=== PATIENT | female | born 1950 | race Caucasian/White ===

== ENCOUNTER 2016-11-26 07:46 | Inpatient (IN) | payer MEDICAID, MEDICARE ==
[~2016-11-26] VITALS: Ht 160 cm; Wt 66.6 kg
[~2016-11-26 07:46] MED LIST: BENZ1 PO; LOXA50CA PO; PROP1TAB66 PO
[2016-11-26 07:57] VITALS: BP 132/63; PULSE 84; RESP 18; TEMP 98.2
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
[2016-11-26] MEDS ORDERED: LORazepam 2 MG/ML VIAL IM ONE (08:00)
[2016-11-26] MEDS ORDERED: diphenhydrAMINE HCL 50 MG/ML VIAL IM ONE (08:00)
[2016-11-26 08:19] LABS: AUTOMATED NEUTROPHIL # 2.8 TH/MM3 (1.8-7.7); BASOPHIL # 0.1 TH/MM3 (0-0.2); BASOPHIL % 1.1 % (0.0-2.0); EOSINOPHIL # 0.2 TH/MM3 (0-0.4); EOSINOPHIL % 2.8 % (0.0-4.0); HEMATOCRIT 40.8 % (35.0-46.0); HEMO FLAGS DIFF FINAL; LYMPH % 42.1 % (9.0-44.0); LYMPHOCYTE # 2.5 TH/MM3 (1.0-4.8); MEAN CELL VOLUME 89.9 FL (80.0-100.0); MEAN CORPUSCULAR HEMOGLOBIN 30.1 PG (27.0-34.0); MEAN CORPUSCULAR HGB CONC 33.5 % (32.0-36.0); PLATELET COUNT 290 TH/MM3 (150-450); RED BLOOD COUNT 4.53 MIL/MM3 (4.00-5.30); RED CELL DISTRIBUTION WIDTH 14.7 % (11.6-17.2); WHITE BLOOD COUNT 5.9 TH/MM3 (4.0-11.0)
[2016-11-26 08:42] LABS: ALT (GPT) 18 U/L (10-53); ANION GAP 11 MEQ/L (5-15); AST (GOT) 22 U/L (15-37); BICARBONATE 25.9 MEQ/L (21.0-32.0); BLOOD UREA NITROGEN 8 MG/DL (7-18); CHLORIDE 106 MEQ/L (98-107); GLOMERULAR FILTRATION RATE 70 ML/MIN (>89); POTASSIUM 3.4 MEQ/L (3.5-5.1); SODIUM (NA) 143 MEQ/L (136-145)
[2016-11-26 08:44] LABS: ALKALINE PHOSPHATASE 97 U/L (45-117); TOTAL BILIRUBIN ADULT 0.3 MG/DL (0.2-1.0)
[2016-11-26 09:55] LABS: BLOOD, URINE NEG (NEG); COMMENT (UR) CULT NOT INDICATED; CULTURE IF INDICATED CULT NOT INDICATED; GLUCOSE,URINE NEG (NEG); KETONE, URINE NEG (NEG); NITRITE,URINE NEG (NEG); PH, URINE 7.5 (5.0-8.5); SQUAMOUS EPITHELIAL CELL URINE <1 /hpf (0-5); URINE COLOR LIGHT-YELLOW (YELLW/STRAW)
[2016-11-26 09:58] LABS: AMPHETAMINE, URINE NEG (NEG); BARBITURATES, URINE NEG (NEG); COCAINE, URINE NEG (NEG)
[2016-11-26 14:34] VITALS: BP 128/71; PULSE 81; RESP 16; O2SAT 98
[2016-11-26 18:52] VITALS: BP 197/82; PULSE 81; TEMP 97.6; O2SAT 96
[2016-11-26 22:04] VITALS: BP 147/72; PULSE 61; RESP 16; O2SAT 96
[2016-11-26] MEDS ORDERED: MAGNESIUM HYDROXIDE SUSP 30 ML CUP PO PRN (22:15)
[2016-11-26] MEDS ORDERED: diphenhydrAMINE HCL 50 MG CAP PO PRN (22:15)
[2016-11-26] MEDS ORDERED: LORazepam 2 MG/ML VIAL - age > 65 yrs IM PRN (22:15)
[2016-11-26] MEDS ORDERED: diphenhydrAMINE HCL 50 MG/ML VIAL - HS PRN IM (22:15)
[2016-11-26] MEDS ORDERED: diphenhydrAMINE HCL 50 MG CAP - HS PRN PO (22:15)
[2016-11-26] MEDS ORDERED: diphenhydrAMINE HCL 50 MG/ML VIAL IM PRN (22:15)
[2016-11-26] MEDS: ACETAMINOPHEN 325 MG TAB PO PRN (22:20)
[2016-11-26] MEDS: LORazepam 0.5 MG TAB age > 65 yrs PO PRN (22:20)
[2016-11-26] MEDS: QUEtiapine FUMARATE 25 MG TAB PO SCH (22:27)
[2016-11-26 23:50] VITALS: BP 153/72; PULSE 58; RESP 16; TEMP 97; O2SAT 99
[2016-11-27 06:03] VITALS: BP 153/72; PULSE 58; RESP 16; TEMP 97; O2SAT 99
[2016-11-27] MEDS: QUEtiapine FUMARATE 25 MG TAB PO SCH (08:27)
[2016-11-27] MEDS ORDERED: ALUMINUM/MAGNESIUM/SIMETH 30 ML CUP PO PRN (15:15)
[2016-11-27] MEDS ORDERED: ACETAMINOPHEN 325 MG TAB PO PRN (15:15)
[2016-11-27] MEDS ORDERED: MAGNESIUM HYDROXIDE SUSP 30 ML CUP PO PRN (15:15)
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
[2016-11-27 18:54] VITALS: BP 134/75; PULSE 67; RESP 18; TEMP 98.1; O2SAT 99
[2016-11-27] MEDS: OLANZapine ODT 5 MG TAB PO SCH (20:23)
[2016-11-27] MEDS: ACETAMINOPHEN 325 MG TAB PO PRN (20:24)
[2016-11-27] MEDS ORDERED: risperiDONE ODT 1 MG TAB PO SCH (21:00)
[2016-11-28 05:14] VITALS: BP 160/73; PULSE 58; RESP 16; TEMP 97.2; O2SAT 100
[2016-11-28] MEDS: OLANZapine ODT 5 MG TAB PO SCH (08:01)
[2016-11-28] MEDS: ACETAMINOPHEN 325 MG TAB PO PRN (08:01)
[2016-11-28] MEDS: NICOTINE 21 MG/24 HR PATCH T-DERMAL SCH (08:01)
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
[2016-11-28 18:32] VITALS: BP 136/59; PULSE 57; RESP 16; TEMP 97.4; O2SAT 97
[2016-11-28] MEDS: REMOVE OLD NICODERM (NICOTINE) PATCH T-DERMAL SCH (21:00)
[2016-11-28] MEDS: OLANZapine ODT 10 MG TAB PO SCH (21:22)
[2016-11-28] MEDS: LORazepam 0.5 MG TAB age > 65 yrs PO PRN (21:22)
[2016-11-29 06:03] VITALS: BP 139/64; PULSE 71; RESP 16; TEMP 97.1; O2SAT 97
[2016-11-29] MEDS: OLANZapine ODT 5 MG TAB PO SCH (08:46)
[2016-11-29] MEDS: ACETAMINOPHEN 325 MG TAB PO PRN (08:47)
[2016-11-29] MEDS: REMOVE OLD NICODERM (NICOTINE) PATCH T-DERMAL SCH (08:48)
[2016-11-29] MEDS: NICOTINE 21 MG/24 HR PATCH T-DERMAL SCH (08:48)
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
[2016-11-29 17:14] VITALS: BP 130/78; PULSE 95; RESP 18; TEMP 97.8; O2SAT 97
[2016-11-29] MEDS: OLANZapine ODT 10 MG TAB PO SCH (21:01)
[2016-11-29] MEDS: LORazepam 0.5 MG TAB age > 65 yrs PO PRN (21:18)
[2016-11-30 05:22] VITALS: BP 132/69; PULSE 64; RESP 16; TEMP 97.1; O2SAT 97
[2016-11-30] MEDS: OLANZapine ODT 5 MG TAB PO SCH (08:52)
[2016-11-30] MEDS: ACETAMINOPHEN 325 MG TAB PO PRN (09:20)
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
[2016-11-30 15:15] VITALS: BP 113/54; PULSE 71; RESP 18; TEMP 98.4; O2SAT 98
[2016-11-30] MEDS: LORazepam 0.5 MG TAB age > 65 yrs PO PRN (20:51)
[2016-11-30] MEDS: OLANZapine ODT 10 MG TAB PO SCH (20:51)
[2016-12-01 06:00] VITALS: BP 132/61; PULSE 73; RESP 16; TEMP 97.4; O2SAT 97
[2016-12-01] MEDS: ACETAMINOPHEN 325 MG TAB PO PRN (09:39)
[2016-12-01] MEDS: OLANZapine ODT 5 MG TAB PO SCH (09:39)
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
[2016-12-01 15:30] VITALS: BP 115/59; PULSE 72; RESP 18; TEMP 97.9; O2SAT 96
[2016-12-01] MEDS: OLANZapine ODT 10 MG TAB PO SCH (20:35)
[2016-12-02] MEDS: ALUMINUM/MAGNESIUM/SIMETH 30 ML CUP PO PRN (02:41)
[2016-12-02] MEDS: ACETAMINOPHEN 325 MG TAB PO PRN (04:04)
[2016-12-02 06:09] VITALS: BP 132/61; PULSE 87; RESP 17; TEMP 98.1; O2SAT 97
[2016-12-02] MEDS: LORazepam 0.5 MG TAB age > 65 yrs PO PRN (08:49)
[2016-12-02] MEDS: OLANZapine ODT 5 MG TAB PO SCH (08:49)
--- NOTE | 2016-12-02 14:11 | HHI.PYPN ---
Subjective Remarks Pt seen and discussed with staff. She has been cooperative with care and has not been agitated today. She remains paranoid and guarded but is improving. No medication side effects. No SI/HI Objective Alert: Yes [place]: Person, Place Mood: Calm Affect: Restricted Memory Intact: Comment (poor) Hallucinations: Other (vaguely denies) Delusions: Yes Delusion Type: Paranoid Suicidal: Ideation (denies) Homicidal: Ideation (denies) Insight/Judgment limited Remarks disheveled Vitals/IOs Vital Signs Date Time Temp Pulse Resp B/P Pulse Ox O2 Delivery O2 Flow Rate FiO2 12/02/16 06:09 98.1 87 17 132/61 97 Assessment & Plan Problem List: (1) Schizoaffective disorder, bipolar type ICD Code: F25.0 Assessment & Plan Continue current tx plan. Estimated LOS: days Justification for Cont. Inpt. risks of decompensation Request HC Surrog/Guard Advoc?: No Savannah Gutierrez MD December 02, 2016 14:11
[2016-12-02] MEDS ORDERED: hydrOXYzine PAMOATE 25 MG CAP PO PRN (15:45)
[2016-12-02 17:14] VITALS: BP 125/60; PULSE 72; RESP 18; TEMP 98.7; O2SAT 98
[2016-12-02] MEDS: OLANZapine ODT 10 MG TAB PO SCH (21:36)
[2016-12-03] MEDS: ALUMINUM/MAGNESIUM/SIMETH 30 ML CUP PO PRN ×2 (00:17→20:37)
[2016-12-03] MEDS: ACETAMINOPHEN 325 MG TAB PO PRN (04:28)
[2016-12-03 06:34] VITALS: BP 133/82; PULSE 69; RESP 19; TEMP 97.4; O2SAT 99
[2016-12-03 06:36] VITALS: BP 129/60; PULSE 100; RESP 18; TEMP 98.4; O2SAT 99
[2016-12-03] MEDS: OLANZapine ODT 5 MG TAB PO SCH (08:43)
--- NOTE | 2016-12-03 11:08 | HHI.PYPN ---
Subjective Remarks Pt seen and discussed with staff. Pt is paranoid and easily agitated. She demands discharge and told RN she [facility] and became agitated when RN suggested that was not a safe, viable plan. She accuses MD of not being a real physician and insists that physician JOHNATHAN nunes is a fake. She then accuses MD of attempting to make trouble for Dr. Navarro and makes vague threats. "You don't know what you getting into. You don't want to get involved in this." Objective Alert: Yes [place]: Person, Place Mood: Angry Affect: Other (congruent) Memory Intact: Comment (poor) Hallucinations: Other (vaguely denies) Delusions: Yes Delusion Type: Paranoid Suicidal: Ideation (denies) Homicidal: Ideation (denies) Insight/Judgment poor Vitals/IOs Vital Signs Date Time Temp Pulse Resp B/P Pulse Ox O2 Delivery O2 Flow Rate FiO2 12/03/16 06:36 98.4 100 18 129/60 99 Assessment & Plan Problem List: (1) Schizoaffective disorder, bipolar type ICD Code: F25.0 Assessment & Plan Continue current tx plan and hospitalization. As pt is psychotic, easily agitated and unable to care for self, she is at risk for neglect if discharged. She meets BA criteria. Involuntary hospitalization petition started. Estimated LOS: days Justification for Cont. Inpt. impairments in reality construction and self care. Request HC Surrog/Guard Advoc?: Savannah Ovalle MD December 03, 2016 11:08
[2016-12-03] MEDS: LORazepam 0.5 MG TAB age > 65 yrs PO PRN (13:35)
[2016-12-03] MEDS ORDERED: PADIMATE (CHAPSTICK) 4.5 GM TUBE TOPICAL PRN (14:00)
[2016-12-03 18:11] VITALS: BP 140/64; PULSE 68; RESP 17; TEMP 97.4; O2SAT 96
[2016-12-03] MEDS: OLANZapine ODT 10 MG TAB PO SCH (21:49)
[2016-12-04] MEDS: ACETAMINOPHEN 325 MG TAB PO PRN ×2 (03:38→13:52)
[2016-12-04 05:43] VITALS: BP 135/64; PULSE 64; RESP 18; TEMP 97.2; O2SAT 96
[2016-12-04] MEDS: OLANZapine ODT 5 MG TAB PO SCH (09:02)
--- NOTE | 2016-12-04 14:02 | HHI.PYPN ---
Subjective Remarks Patient seen in day room with nurse Lynn. Patient somewhat angry and irritable, still feels suspicious of an somewhat anxious over [place] around her. We did discuss medications with her she continues to state her best responses were with Loxitane 25 mg at bedtime with [address] Gutierrez over the weekend did first opinion petition supporting a Mckeon act. After talking with patient today we did make an agreement that she would stay voluntarily if we adjusted the medication. She still has no home to go to. And that concerns her. She also though focus on the fact that she wants a cigarette. She stated she would go to when [facility] if one is found in a recent amount of time. I also agreed with her that if one is not followed and resume on of time and she wished to be discharged to herself without placement I would agreed to that thus I will decline to sign second opinion petition supporting Mckeon act to keep the patient on a voluntary status. We will stop the Zyprexa entirely and offer Loxitane 25 mg at at bedtime and Cogentin 1 mg at at bedtime if no appropriate placement is found within 2-3 days the patient wishes discharge shows discharge or Review of Systems Except as stated in HPI: all other systems reviewed are Neg Objective Alert: Yes [place]: Person, Place Mood: Angry Affect: Other (congruent) Memory Intact: Comment (poor) Hallucinations: Other (vaguely denies) Delusions: Yes Delusion Type: Paranoid Suicidal: Ideation (denies) Homicidal: Ideation (denies) Insight/Judgment Poor Vitals/IOs Vital Signs Date Time Temp Pulse Resp B/P Pulse Ox O2 Delivery O2 Flow Rate FiO2 12/04/16 05:43 97.2 64 18 135/64 96 Assessment & Plan Problem List: (1) Schizoaffective disorder, bipolar type ICD Code: F25.0 Assessment & Plan Estimated LOS: days patient continues paranoid psychotic overlay, irritable and intrusive. She is able to process with me and concurs with my recommendations for treatment at this time including medication adjustments about for now will not sign second opinion petition supporting Mckeon act allow the patient remain on a voluntary basis Justification for Cont. Inpt. This time patient will decompensate if placed in a lower level of care Discharge Planning To be determined Request HC Surrog/Guard Advoc?: No Elan Navarro MD December 04, 2016 14:02
[2016-12-04] MEDS: ALUMINUM/MAGNESIUM/SIMETH 30 ML CUP PO PRN (16:37)
[2016-12-04 17:10] VITALS: BP 123/57; PULSE 68; RESP 18; TEMP 97.9; O2SAT 96
[2016-12-04] MEDS: BENZTROPINE MESYLATE 1 MG TAB PO SCH (20:04)
[2016-12-04] MEDS: LOXAPINE 5 MG CAP PO SCH (21:00)
[2016-12-05 06:00] VITALS: BP 134/70; PULSE 85; RESP 18; TEMP 97.3; O2SAT 96
[2016-12-05] MEDS: ACETAMINOPHEN 325 MG TAB PO PRN ×2 (08:07→21:57)
[2016-12-05] MEDS: ALUMINUM/MAGNESIUM/SIMETH 30 ML CUP PO PRN (08:07)
--- NOTE | 2016-12-05 11:14 | HHI.PYPN ---
Subjective Remarks Patient seen in day room with nurse Giovanna, chart reviewed. Patient compliant with her medications. Today patient is noticeably calmer more focused and pleasant, there is a decrease in her paranoia. There is increase in her eye contact. She does denies suicidality homicidality voices or visions. She still considering whether she wishes to be discharged tomorrow or to continue hospitalization to work further with medication and placement issues. Well I allow patient treatment on a voluntary basis yesterday I forgot to have her officially recently ror. Patient will recently ror today Review of Systems Except as stated in HPI: all other systems reviewed are Neg Objective Alert: Yes [place]: Person, Place Mood: Angry Affect: Other (congruent) Memory Intact: Comment (poor) Hallucinations: Other (vaguely denies) Delusions: Yes Delusion Type: Paranoid Suicidal: Ideation (denies) Homicidal: Ideation (denies) Insight/Judgment Poor Vitals/IOs Vital Signs Date Time Temp Pulse Resp B/P Pulse Ox O2 Delivery O2 Flow Rate FiO2 12/05/16 06:00 97.3 85 18 134/70 96 Assessment & Plan Problem List: (1) Schizoaffective disorder, bipolar type ICD Code: F25.0 Assessment & Plan Estimated LOS: days patient psychosis is diminished, she is compliant with her medications. For now continue treatment Justification for Cont. Inpt. At this time patient will decompensate placed on the lower level of care Discharge Planning Be determined Request HC Surrog/Guard Advoc?: No Elan Navarro MD December 05, 2016 11:13
[2016-12-05 18:23] VITALS: BP 117/56; PULSE 61; RESP 17; TEMP 97.5; O2SAT 97
[2016-12-05] MEDS: LOXAPINE 5 MG CAP PO SCH (21:06)
[2016-12-05] MEDS: BENZTROPINE MESYLATE 1 MG TAB PO SCH (21:06)
[2016-12-06] MEDS: ALUMINUM/MAGNESIUM/SIMETH 30 ML CUP PO PRN (04:14)
[2016-12-06 05:57] VITALS: BP 131/63; PULSE 61; RESP 17; TEMP 97.4; O2SAT 93
[2016-12-06] MEDS: ACETAMINOPHEN 325 MG TAB PO PRN ×2 (06:37→19:24)
[2016-12-06] MEDS ORDERED: LOXA25CA PO (15:38)
[2016-12-06] MEDS ORDERED: Benztropine PO (15:38)
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
[2016-12-06 18:07] VITALS: BP 142/71; PULSE 61; RESP 18; TEMP 98; O2SAT 97
[2016-12-06] MEDS: BENZTROPINE MESYLATE 1 MG TAB PO SCH (21:04)
[2016-12-06] MEDS: LOXAPINE 5 MG CAP PO SCH (21:04)
[2016-12-07 06:03] VITALS: BP 139/69; PULSE 80; RESP 18; TEMP 97.6; O2SAT 94
[2016-12-07] MEDS: ACETAMINOPHEN 325 MG TAB PO PRN (06:47)
[2016-12-07] MEDS: LORazepam 0.5 MG TAB age > 65 yrs PO PRN (09:03)
== END 2016-12-07 12:55 | disposition home or self-care (01) | DRG 885 ==
LOC: NEPE 07:46 → NEDA 21:53 → H270 23:35
PROVIDERS: ADMIT Psychiatry & Neurology Psychiatry; ATTEND Psychiatry & Neurology Psychiatry
DX: F25.0 Schizoaffective disorder, bipolar type (principal); R45.851 Suicidal ideations; Z59.0 Homelessness; F17.210 Nicotine dependence, cigarettes, uncomplicated; I10 Essential (primary) hypertension; Z88.8 Allergy status to other drugs, medicaments and biological substances
CPT/HCPCS: 80053; 80307; 81001; 85025; 96372; J1200; J2060

== ENCOUNTER 2016-12-11 11:55 | Emergency (ER) | payer MEDICARE ==
[~2016-12-11] VITALS: Ht 160 cm; Wt 65.0 kg
[~2016-12-11 11:55] MED LIST changes: -BENZ1 PO; +Benztropine PO; +LOXA25CA PO; -LOXA50CA PO; -PROP1TAB66 PO
[2016-12-11 11:57] VITALS: BP 155/76; PULSE 84; RESP 14; TEMP 98.2; O2SAT 98
--- NOTE | 2016-12-11 12:12 | PD ---
Physical Exam Time Seen by Provider: 12:09 Narrative 66 y/o female here for evaluation of depression, worsening. Admitted psychiatrically in November, discharged on 12/06, was seeing Dr. Navarro during her hospitalization. Vital signs reviewed. Seen at triage desk. Awaiting bed placement. Data Data Last Documented VS Vital Signs Date Time Temp Pulse Resp B/P Pulse Ox O2 Delivery O2 Flow Rate FiO2 12/11/16 11:57 98.2 84 14 155/76 98 MDM Medical Record Reviewed: Yes Supervised Visit with GERARDO: Saurav De Leon Dec 11, 2016 12:12
[2016-12-11] MEDS ORDERED: AZIT250T3 PO (14:07)
[2016-12-11] MEDS ORDERED: BENZ0.5T PO (14:13)
--- NOTE | 2016-12-11 14:34 | PD ---
HPI Chief Complaint: Psychiatric Symptoms Time Seen by Provider: 14:30 Travel History International Travel<30 days: No Contact w/Intl Traveler<30days: No Traveled to known affect area: No History of Present Illness HPI 66-year-old female that presents to the ED for evaluation of depression. Per patient for the past 2 days been having worsening depression secondary to family issues. Per patient she has not been able to see her daughter and she states that she is homeless as she has issues because of this. Per patient she was told by her Dr. Navarro who saw her on her last admission just a week ago that if anything worsens he is to come back here. Per patient she comes here to get evaluated. She states compliance with her medications. Denies any chest or shortness of breath. History of schizophrenia and depression. No substance or alcohol abuse. No chest pain. Per patient she does have some cough and congestion with yellow productive mucous. Denies any shortness of breath. No other symptoms. No recent sick contacts. The patient his symptoms be worsening for the past 2 days. Patient comes here voluntarily for evaluation of this. Denies any suicidal or homicidal ideation. PFSH Past Medical History Anxiety: Yes Depression: Yes Heart Rhythm Problems: Yes (TACHYCARDIA) Cancer: Yes (SKIN) Cardiovascular Problems: Yes Diminished Hearing: No Gastrointestinal Disorders: Yes (COLITIS) Genitourinary: No Headaches: Yes Hypertension: Yes Musculoskeletal: No Neurologic: No Psychiatric: Yes (Patient has history of SCHIZOPHRENIA) Reproductive: Yes Respiratory: No Schizophrenia: Yes Tetanus Vaccination: < 5 Years Influenza Vaccination: No Menopausal: Yes : 1 Para: 1 Miscarriage: 0 : 0 Tubal Ligation: Yes Past Surgical History Appendectomy: Yes Eye Surgery: Yes (BILATERAL CATARACTS) Gynecologic Surgery: Yes (RIGHT BREAST BENIGN TUMOR EXCISION) Hysterectomy: Yes (PARTIAL) Neurologic Surgery: No Social History Alcohol Use: Yes (LAST DRINK COUPLE DAYS AGO) Tobacco Use: Yes (1 PPD) Substance Use: No Allergies-Medications (Allergen,Severity, Reaction): Coded Allergies: Cortisone (Verified Allergy, Severe, PER PT. WAS CODED, 12/11/16) Haldol (Verified Allergy, Severe, CHEST PAIN, 12/11/16) Penicillin (Verified Allergy, Severe, SWELLING, 12/11/16) Reported Meds & Prescriptions Reported Meds & Active Scripts Active Azithromycin 250 Mg Tab 250 Mg PO DIRECTED Take 2 tabs (500 mg) on day 1 then 1 tab daily x 4 days. Loxapine (Loxapine Succinate) 25 Mg Cap 25 Mg PO HS Reported Benztropine (Benztropine Mesylate) 0.5 Mg Tab 1 Mg PO HS Review of Systems Except as stated in HPI: all other systems reviewed are Neg Physical Exam Narrative GENERAL: Well-nourished, well-developed patient in no apparent distress. SKIN: Warm and dry. HEAD: Atraumatic. Normocephalic. EYES: Pupils equal and round reactive to light and accommodation. No scleral icterus. No injection or drainage. ENT: No nasal bleeding or discharge. Mucous membranes pink and moist. TMs are clear with no sign of infection or perforation. No mastoid tenderness. Ear canals are intact bilaterally. No lymphadenopathy. Nostril mucosa is red and moist with clear mucus noted. No sinus tenderness to palpation noted. Tonsils are not enlarged or swollen. No ulvua Deviation. Tongue is midline. NECK: Trachea midline. No JVD. No meningeal signs noted CARDIOVASCULAR: Regular rate and rhythm. RESPIRATORY: No accessory muscle use. Clear to auscultation. Breath sounds equal bilaterally. GASTROINTESTINAL: Abdomen soft, non-tender, nondistended. Hepatic and splenic margins not palpable. MUSCULOSKELETAL: Extremities without clubbing, cyanosis, or edema. No obvious deformities. Full range of motion of the upper and lower extremities bilaterally. 2+ pulses bilaterally. NEUROLOGICAL: Awake and alert. No obvious cranial nerve deficits. Motor grossly within normal limits. Five out of 5 muscle strength in the arms and legs. Normal speech. PSYCHIATRIC: Depressed mood and affect; insight and judgment normal. Data Data Last Documented VS Vital Signs Date Time Temp Pulse Resp B/P Pulse Ox O2 Delivery O2 Flow Rate FiO2 12/11/16 11:57 98.2 84 14 155/76 98 Orders Complete Blood Count With Diff (12/11/16 12:13) Comprehensive Metabolic Panel (12/11/16 12:13) Psych Screen (12/11/16 12:13) Labs Laboratory Tests Test 12/11/16 14:11 White Blood Count 7.0 TH/MM3 Red Blood Count 4.00 MIL/MM3 Hemoglobin 11.9 GM/DL Hematocrit 36.4 % Mean Corpuscular Volume 91.1 FL Mean Corpuscular Hemoglobin 29.7 PG Mean Corpuscular Hemoglobin 32.6 % Concent Red Cell Distribution Width 14.6 % Platelet Count 240 TH/MM3 Mean Platelet Volume 8.1 FL Neutrophils (%) (Auto) 57.8 % Lymphocytes (%) (Auto) 31.4 % Monocytes (%) (Auto) 6.7 % Eosinophils (%) (Auto) 3.0 % Basophils (%) (Auto) 1.1 % Neutrophils # (Auto) 4.0 TH/MM3 Lymphocytes # (Auto) 2.2 TH/MM3 Monocytes # (Auto) 0.5 TH/MM3 Eosinophils # (Auto) 0.2 TH/MM3 Basophils # (Auto) 0.1 TH/MM3 CBC Comment DIFF FINAL Differential Comment Sodium Level 143 MEQ/L Potassium Level 4.1 MEQ/L Chloride Level 110 MEQ/L Carbon Dioxide Level 29.9 MEQ/L Anion Gap 3 MEQ/L Blood Urea Nitrogen 18 MG/DL Creatinine 0.75 MG/DL Estimat Glomerular Filtration 78 ML/MIN Rate Random Glucose 126 MG/DL Calcium Level 8.3 MG/DL Total Bilirubin 0.3 MG/DL Aspartate Amino Transf 30 U/L (AST/SGOT) Alanine Aminotransferase 22 U/L (ALT/SGPT) Alkaline Phosphatase 89 U/L Total Protein 6.7 GM/DL Albumin 3.6 GM/DL MDM Medical Decision Making Medical Screen Exam Complete: Yes Emergency Medical Condition: Yes Medical Record Reviewed: Yes Interpretation(s) CBC & BMP Diagram 12/11/16 14:11 Differential Diagnosis Depression versus suicidal ideation versus anxiety versus adjustment disorder versus mood disorder versus bipolar disorder versus schizophrenia versus paranoid disorder versus psychosis versus substance abuse versus alcohol abuse versus alcohol induced psychosis versus homicidality addition versus cutting versus personality disorder Narrative Course 66-year-old female that presents to the ED for evaluation of depression. Patient was properly examined and was found to have signs and symptoms consistent with appears to be psychiatric illness. No sign of acute medical distress. Labs were ordered. Patient will be medically cleared. Patient appears to have what appears to be an upper respiratory infection. No sign of acute disease. Patient will be given a prescription for azithromycin to cover for bacterial infection as she is homeless and could have bacterial infections. The patient will be medically cleared. Mental health screening was discussed with the patient. At 3 pm patient states that she does not want to stay for psych eval and wants to leave. She is not suicidal or homicidal. Not under the influence of any substance. Capable of making her own decisions. She understands she is more than welcome to come back.AMA: The risks of leaving against medical advice without further evaluation treatment were discussed with the patient. These risks include cardiac dysfunction, cardiac dysrhythmia, possible heart attack, possible stroke or . The patient indicated understanding of these risks and appeared to have the capacity to make this decision. Diagnosis Primary Impression: Schizoaffective disorder, bipolar type Scripts Azithromycin 250 Mg [id number] Mg PO DIRECTED #6 TAB Take 2 tabs (500 mg) on day 1 then 1 tab daily x 4 days. Prov:Rylee Castaneda MD 12/11/16 Disposition: 07 AGAINST MEDICAL ADVICE Condition: Stable Boni Alegria Dec 11, 2016 14:34
[2016-12-11 14:35] LABS: BASOPHIL # 0.1 TH/MM3 (0-0.2); BASOPHIL % 1.1 % (0.0-2.0); EOSINOPHIL # 0.2 TH/MM3 (0-0.4); HEMATOCRIT 36.4 % (35.0-46.0); HEMO FLAGS DIFF FINAL; LYMPH % 31.4 % (9.0-44.0); LYMPHOCYTE # 2.2 TH/MM3 (1.0-4.8); MEAN CELL VOLUME 91.1 FL (80.0-100.0); MEAN CORPUSCULAR HEMOGLOBIN 29.7 PG (27.0-34.0); MEAN CORPUSCULAR HGB CONC 32.6 % (32.0-36.0); MONO % 6.7 % (0.0-8.0); NEUT % 57.8 % (16.0-70.0); PLATELET COUNT 240 TH/MM3 (150-450); RED CELL DISTRIBUTION WIDTH 14.6 % (11.6-17.2)
[2016-12-11 14:51] LABS: ALKALINE PHOSPHATASE 89 U/L (45-117); TOTAL BILIRUBIN ADULT 0.3 MG/DL (0.2-1.0)
[2016-12-11 14:57] LABS: ALT (GPT) 22 U/L (10-53); ANION GAP 3 MEQ/L (5-15); AST (GOT) 30 U/L (15-37); BICARBONATE 29.9 MEQ/L (21.0-32.0); BLOOD UREA NITROGEN 18 MG/DL (7-18); CHLORIDE 110 MEQ/L (98-107); GLOMERULAR FILTRATION RATE 78 ML/MIN (>89); POTASSIUM 4.1 MEQ/L (3.5-5.1); SODIUM (NA) 143 MEQ/L (136-145)
== END 2016-12-11 15:19 | disposition left against medical advice (07) ==
LOC: NEPD 11:55
DX: F25.0 Schizoaffective disorder, bipolar type (principal)
CPT/HCPCS: 80053; 85025; 99283

== ENCOUNTER 2017-05-20 09:40 | Emergency (ER) | payer SELFPAY ==
[~2017-05-20] VITALS: Ht 162.6 cm; Wt 61.0 kg
[~2017-05-20 09:40] MED LIST changes: +AZIT250T3 PO; +BENZ0.5T PO; -Benztropine PO
[2017-05-20 09:53] VITALS: BP 140/65; PULSE 75; RESP 16; TEMP 97.8; O2SAT 98
--- NOTE | 2017-05-20 10:19 | PD ---
HPI Chief Complaint: Numbness/Tingling Time Seen by Provider: 10:06 Travel History International Travel<30 days: No Contact w/Intl Traveler<30days: No Traveled to known affect area: No History of Present Illness HPI The patient was seen and examined in the presence of the nurse. This patient complains of numbness and tingling sensation in both of her feet and both of her hands. She says she had a spell where her arms and legs were shaking last night. She thinks it lasted around 30 minutes. She is very vague. She has history of psychiatric illness and is a poor historian. I asked the patient the relevant question about her alcohol use and she got very defensive and very upset and started yelling and screaming. Symptoms severity is mild. Duration one day. No alleviating factors. Symptoms may be exacerbated by her psychiatric illness. She denies suicidal ideation or hallucination. She says she's been homeless for 10 years PFSH Past Medical History Anxiety: Yes Depression: Yes Heart Rhythm Problems: Yes (TACHYCARDIA) Cancer: Yes (SKIN) Cardiac Catheterization: Yes Cardiovascular Problems: Yes Diminished Hearing: No Gastrointestinal Disorders: Yes (COLITIS) Genitourinary: No Headaches: Yes Hypertension: Yes Musculoskeletal: No Neurologic: No Psychiatric: Yes (Patient has history of SCHIZOPHRENIA) Reproductive: Yes Respiratory: No Schizophrenia: Yes Ulcer: No Tetanus Vaccination: < 5 Years ?: Not Menopausal: Yes : 1 Para: 1 Miscarriage: 0 : 0 Tubal Ligation: Yes Past Surgical History Abdominal Surgery: No Appendectomy: Yes Eye Surgery: Yes (BILATERAL CATARACTS) Gynecologic Surgery: Yes (RIGHT BREAST BENIGN TUMOR EXCISION) Hysterectomy: Yes (PARTIAL) Neurologic Surgery: No Social History Alcohol Use: Yes (LAST DRINK COUPLE DAYS AGO) Tobacco Use: Yes (1 PPD) Substance Use: No Allergies-Medications (Allergen,Severity, Reaction): Coded Allergies: cortisone (Unverified Allergy, Severe, PER PT. WAS CODED, 05/20/17) haloperidol (Unverified Allergy, Severe, CHEST PAIN, 05/20/17) penicillin G (Unverified Allergy, Severe, SWELLING, 05/20/17) Reported Meds & Prescriptions Reported Meds & Active Scripts Active No Active Prescriptions or Reported Medications Review of Systems General / Constitutional: No: Fever Eyes: No: Visual changes HENT: No: Headaches Cardiovascular: No: Chest Pain or Discomfort Respiratory: No: Shortness of Breath Gastrointestinal: No: Abdominal Pain Genitourinary: No: Dysuria Musculoskeletal: No: Pain Skin: No Rash Neurologic: Positive: Paresthesia, No: Weakness Psychiatric: Positive: Disorder of Thought, No: Depression Endocrine: No: Polydipsia Hematologic/Lymphatic: No: Easy Bruising Physical Exam Narrative GENERAL: Disheveled and angry and argumentative patient in no apparent distress. SKIN: Focused skin assessment reveals no rash and nodules. Skin is Warm and dry. HEAD: Atraumatic. Normocephalic. EYES: Pupils equal and round. No scleral icterus. No injection or drainage. ENT: No nasal bleeding or discharge. Mucous membranes pink and moist. NECK: Trachea midline. No JVD. CARDIOVASCULAR: Regular rate and rhythm. No murmur appreciated. RESPIRATORY: No accessory muscle use. Clear to auscultation. Breath sounds equal bilaterally. GASTROINTESTINAL: Abdomen soft, non-tender, nondistended. Hepatic and splenic margins not palpable. MUSCULOSKELETAL: No obvious deformities. No clubbing. No cyanosis. Symmetric lower extremity edema with some thickening and hyperpigmentation of skin suggesting chronicity. NEUROLOGICAL: Awake and alert. No obvious cranial nerve deficits. Motor grossly within normal limits. Normal speech. PSYCHIATRIC: Agitated mood and affect; insight and judgment poor . Data Data Last Documented VS Vital Signs Date Time Temp Pulse Resp B/P (MAP) Pulse Ox O2 Delivery O2 Flow Rate FiO2 05/20/17 09:53 97.8 75 16 140/65 (90) 98 Orders Orders Iv Access Insert/Monitor (05/20/17 10:11) Complete Blood Count With Diff (05/20/17 10:11) Basic Metabolic Panel (Bmp) (05/20/17 10:11) Urinalysis - C+S If Indicated (05/20/17 10:11) Drug Screen, Random Urine (05/20/17 10:11) Alcohol (Ethanol) (05/20/17 10:11) Electrocardiogram (05/20/17 ) Urine Culture (05/20/17 11:20) Labs Laboratory Tests Test 05/20/17 10:10 05/20/17 11:20 White Blood Count 7.8 TH/MM3 Red Blood Count 4.16 MIL/MM3 Hemoglobin 13.0 GM/DL Hematocrit 38.3 % Mean Corpuscular Volume 92.0 FL Mean Corpuscular Hemoglobin 31.2 PG Mean Corpuscular Hemoglobin Concent 33.9 % Red Cell Distribution Width 15.0 % Platelet Count 288 TH/MM3 Mean Platelet Volume 7.6 FL Neutrophils (%) (Auto) 55.9 % Lymphocytes (%) (Auto) 33.0 % Monocytes (%) (Auto) 7.3 % Eosinophils (%) (Auto) 3.0 % Basophils (%) (Auto) 0.8 % Neutrophils # (Auto) 4.4 TH/MM3 Lymphocytes # (Auto) 2.6 TH/MM3 Monocytes # (Auto) 0.6 TH/MM3 Eosinophils # (Auto) 0.2 TH/MM3 Basophils # (Auto) 0.1 TH/MM3 CBC Comment DIFF FINAL Differential Comment Blood Urea Nitrogen 17 MG/DL Creatinine 0.62 MG/DL Random Glucose 84 MG/DL Calcium Level 9.1 MG/DL Sodium Level 141 MEQ/L Potassium Level 4.0 MEQ/L Chloride Level 106 MEQ/L Carbon Dioxide Level 26.6 MEQ/L Anion Gap 8 MEQ/L Estimat Glomerular Filtration Rate 97 ML/MIN Ethyl Alcohol Level LESS THAN 3 MG/DL Urine Color YELLOW Urine Turbidity HAZY Urine pH 6.0 Urine Specific [place] 1.018 Urine Protein TRACE mg/dL Urine Glucose (UA) NEG mg/dL Urine Ketones TRACE mg/dL Urine Occult Blood TRACE Urine Nitrite POS Urine Bilirubin NEG Urine Urobilinogen LESS THAN 2.0 MG/DL Urine Leukocyte Esterase LARGE Urine RBC 1 /hpf Urine WBC 41 /hpf Urine WBC Clumps OCC Urine Bacteria MANY /hpf Microscopic Urinalysis Comment CATH-CULTURE IND Urine Opiates Screen NEG Urine Barbiturates Screen NEG Urine Amphetamines Screen NEG Urine Benzodiazepines Screen NEG Urine Cocaine Screen NEG Urine Cannabinoids Screen NEG [facility] Medical Decision Making Medical Screen Exam Complete: Yes Emergency Medical Condition: Yes Medical Record Reviewed: Yes Differential Diagnosis Paresthesia, peripheral neuropathy, tremor, seizure Narrative Course I have reviewed the patient's electronic medical record. Patient's been seen here many times for psychiatric complaints. Last was December 2016 IV placed CBC is normal Metabolic profile is normal Urinalysis is clean Urine tox screen is negative Alcohol is negative I reviewed her EKG which shows sinus rhythm but no ST elevation or ectopy Extended cardiac monitoring reveals sinus rhythm without ectopy Patient's initial pulse and blood pressure are normal On recheck patient is sound asleep. Stable for outpatient follow-up Sounds like she has some type of intermittent paresthesia or peripheral neuropathy Recommend primary care follow-up to start Diagnosis Primary Impression: Paresthesia Additional Impressions: Peripheral neuropathy Qualified Codes: G62.9 - Polyneuropathy, unspecified Schizoaffective disorder, bipolar type Additional Instructions: The patient was advised to follow up with their physician and return if they worsen. Med/Other Pt SpecificInfo: Other Scripts No Active Prescriptions or Reported Meds Disposition: 01 DISCHARGE HOME Condition: Stable Rosendo Macario MD May 20, 2017 10:19
[2017-05-20 10:35] LABS: AUTOMATED NEUTROPHIL # 4.4 TH/MM3 (1.8-7.7); BASOPHIL # 0.1 TH/MM3 (0-0.2); BASOPHIL % 0.8 % (0.0-2.0); EOSINOPHIL # 0.2 TH/MM3 (0-0.4); HEMATOCRIT 38.3 % (35.0-46.0); HEMO FLAGS DIFF FINAL; LYMPHOCYTE # 2.6 TH/MM3 (1.0-4.8); MEAN CORPUSCULAR HEMOGLOBIN 31.2 PG (27.0-34.0); MEAN CORPUSCULAR HGB CONC 33.9 % (32.0-36.0); MONO % 7.3 % (0.0-8.0); NEUT % 55.9 % (16.0-70.0); PLATELET COUNT 288 TH/MM3 (150-450); RED BLOOD COUNT 4.16 MIL/MM3 (4.00-5.30); WHITE BLOOD COUNT 7.8 TH/MM3 (4.0-11.0)
[2017-05-20 11:13] LABS: ANION GAP 8 MEQ/L (5-15); BICARBONATE 26.6 MEQ/L (21.0-32.0); BLOOD UREA NITROGEN 17 MG/DL (7-18); CHLORIDE 106 MEQ/L (98-107); GLOMERULAR FILTRATION RATE 97 ML/MIN (>89); SODIUM (NA) 141 MEQ/L (136-145)
[2017-05-20 11:14] LABS: ALCOHOL LESS THAN 3 MG/DL (0-5)
[2017-05-20] MEDS ORDERED: SYNT112T PO (11:28)
[2017-05-20] MEDS ORDERED: ALLO300T2 PO (11:28)
[2017-05-20 11:57] LABS: BACTERIA, URINE MANY /hpf; BLOOD, URINE TRACE (NEG); COMMENT (UR) CATH-CULTURE IND; CULTURE IF INDICATED CATH CULTURE IND; GLUCOSE,URINE NEG (NEG); KETONE, URINE TRACE mg/dL (NEG); NITRITE,URINE POS (NEG); URINE COLOR YELLOW (YELLW/STRAW)
[2017-05-20 13:15] VITALS: BP 142/81
--- NOTE | 2017-05-21 19:25 | EKG ---
Date Performed: 05/20/2017 Time Performed: 10:02:46 PTAGE: 66 years EKG: Sinus rhythm WITH MARKED SINUS ARRHYTHMIA BORDERLINE ECG Since PREVIOUS TRACING , no significant change noted PREVIOUS TRACIN06/21/2009 01.50 DOCTOR: Jackeline Cerrato Interpretating Date/Time 05/21/2017 19:23:44
== END 2017-05-20 13:15 | disposition home or self-care (01) ==
LOC: NEPE 09:40
DX: R20.2 Paresthesia of skin (principal); G62.9 Polyneuropathy, unspecified; F25.0 Schizoaffective disorder, bipolar type; R82.99 Other abnormal findings in urine; B96.20 Unspecified Escherichia coli [E. coli] as the cause of diseases classified elsewhere; R25.1 Tremor, unspecified; R94.31 Abnormal electrocardiogram [ECG] [EKG]; I10 Essential (primary) hypertension; F17.200 Nicotine dependence, unspecified, uncomplicated; Z86.59 Personal history of other mental and behavioral disorders; Z86.79 Personal history of other diseases of the circulatory system; Z85.828 Personal history of other malignant neoplasm of skin; Z87.19 Personal history of other diseases of the digestive system; Z87.42 Personal history of other diseases of the female genital tract
CPT/HCPCS: 80048; 80307; 81001; 85025; 87077; 87086; 87186; 93005; 99284

== ENCOUNTER 2017-11-15 10:23 | Inpatient (IN) | payer MEDICARE ==
[~2017-11-15] VITALS: Ht 162.6 cm; Wt 66.5 kg
[2017-11-15 10:44] VITALS: BP 171/79; PULSE 83; RESP 20; TEMP 98.2; O2SAT 97
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
[2017-11-15] MEDS ORDERED: HALOPERIDOL LACTATE 5 MG/ML AMP IM ONE (11:00)
[2017-11-15] MEDS ORDERED: OLANZapine IM 10 MG VIAL IM ONE (11:00)
[2017-11-15 11:19] VITALS: BP 148/68; PULSE 70; RESP 18; O2SAT 98
[2017-11-15 11:25] LABS: AUTOMATED NEUTROPHIL # 5.1 TH/MM3 (1.8-7.7); BASOPHIL # 0.1 TH/MM3 (0-0.2); BASOPHIL % 0.7 % (0.0-2.0); EOSINOPHIL # 0.1 TH/MM3 (0-0.4); EOSINOPHIL % 1.1 % (0.0-4.0); HEMOGLOBIN 13.5 GM/DL (11.6-15.3); LYMPH % 29.8 % (9.0-44.0); LYMPHOCYTE # 2.4 TH/MM3 (1.0-4.8); MEAN CELL VOLUME 89.6 FL (80.0-100.0); MEAN CORPUSCULAR HEMOGLOBIN 29.6 PG (27.0-34.0); MEAN PLATELET VOLUME 7.4 FL (7.0-11.0); MONO % 6.2 % (0.0-8.0); MONOCYTE # 0.5 TH/MM3 (0-0.9); NEUT % 62.2 % (16.0-70.0); PLATELET COUNT 286 TH/MM3 (150-450); RED BLOOD COUNT 4.57 MIL/MM3 (4.00-5.30); RED CELL DISTRIBUTION WIDTH 15.2 % (11.6-17.2); WHITE BLOOD COUNT 8.2 TH/MM3 (4.0-11.0)
[2017-11-15 11:33] LABS: BILIRUBIN, URINE NEG (NEG); BLOOD, URINE NEG (NEG); GLUCOSE,URINE NEG (NEG); KETONE, URINE NEG (NEG); NITRITE,URINE NEG (NEG); PH, URINE 5.5 (5.0-8.5); SQUAMOUS EPITHELIAL CELL URINE 1 /hpf (0-5); URINE COLOR LIGHT-YELLOW (YELLW/STRAW); URINE LEUKOCYTE ESTERASE MOD (NEG)
[2017-11-15 11:41] LABS: AST (GOT) 18 U/L (15-37); BICARBONATE 25.9 MEQ/L (21.0-32.0); BLOOD UREA NITROGEN 17 MG/DL (7-18); CALCIUM 8.7 MG/DL (8.5-10.1); CHLORIDE 105 MEQ/L (98-107); CREATININE 0.74 MG/DL (0.50-1.00); GLOMERULAR FILTRATION RATE 79 ML/MIN (>89); GLUCOSE,RANDOM 99 MG/DL (74-106); SODIUM (NA) 140 MEQ/L (136-145)
[2017-11-15 11:42] LABS: ALT (GPT) 18 U/L (10-53)
[2017-11-15 11:44] LABS: ALKALINE PHOSPHATASE 108 U/L (45-117); PHENYTOIN (DILANTIN) 0.6 MCG/ML (10.0-20.0); TOTAL BILIRUBIN ADULT 0.4 MG/DL (0.2-1.0); TOTAL PROTEIN 7.4 GM/DL (6.4-8.2)
[2017-11-15] MEDS: NICOTINE 21 MG/24 HR PATCH T-DERMAL SCH (14:45)
[2017-11-15] MEDS ORDERED: MAGNESIUM HYDROXIDE SUSP 30 ML CUP PO PRN (14:45)
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
[2017-11-15 15:09] VITALS: BP 117/83; PULSE 73; RESP 18; TEMP 97.7; O2SAT 99
[2017-11-15 17:15] VITALS: BP 116/63; PULSE 56; RESP 18; TEMP 97.3; O2SAT 97
[2017-11-16 06:11] VITALS: BP 144/65; PULSE 59; RESP 18; TEMP 97.6; O2SAT 99
[2017-11-16 08:09] LABS: BICARBONATE 30.4 MEQ/L (21.0-32.0); BLOOD UREA NITROGEN 25 MG/DL (7-18); CALCIUM 8.9 MG/DL (8.5-10.1); CHOLESTEROL 141 MG/DL (120-200); CREATININE 0.77 MG/DL (0.50-1.00); GLOMERULAR FILTRATION RATE 75 ML/MIN (>89); GLUCOSE,RANDOM 88 MG/DL (74-106)
[2017-11-16 08:53] LABS: CHLORIDE 109 MEQ/L (98-107); HDL CHOLESTEROL 56.2 MG/DL (40.0-60.0); LDL CHOLESTEROL 68 MG/DL (0-99); SODIUM (NA) 145 MEQ/L (136-145); TRIGLYCERIDES 85 MG/DL (42-150)
[2017-11-16] MEDS: NICOTINE 21 MG/24 HR PATCH T-DERMAL SCH (09:00)
[2017-11-16] MEDS: REMOVE OLD PATCH T-DERMAL SCH (09:00)
[2017-11-16] MEDS ORDERED: diphenhydrAMINE HCL 50 MG CAP PO PRN (14:30)
[2017-11-16] MEDS ORDERED: PILL SPLITTER OTHER PRN (14:45)
[2017-11-16] MEDS: LORazepam 0.5 MG TAB PO PRN ×2 (14:53→20:42)
[2017-11-16 16:15] LABS: HEMOGLOBIN A1C 5.9 % (4.3-6.0)
--- NOTE | 2017-11-16 17:16 | EKG ---
Date Performed: 11/16/2017 Time Performed: 13:42:18 PTAGE: 67 years EKG: Sinus rhythm NORMAL ECG PREVIOUS TRACING : 05/20/2017 10.02 Since the previous tracing, no significant change noted DOCTOR: Yelena Moran Interpretating Date/Time 11/16/2017 17:15:32
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
[2017-11-16 17:55] VITALS: BP 143/63; PULSE 77; RESP 18; TEMP 97.7; O2SAT 98
[2017-11-16] MEDS: ALUMINUM/MAGNESIUM/SIMETH 30 ML CUP PO PRN (17:58)
[2017-11-16] MEDS: OLANZapine 5 MG TAB PO SCH (20:42)
[2017-11-16] MEDS: BENZTROPINE MESYLATE 1 MG TAB PO SCH (20:42)
[2017-11-17 06:00] VITALS: BP 128/68; PULSE 76; RESP 16; TEMP 97.2; O2SAT 98
[2017-11-17] MEDS: NICOTINE 21 MG/24 HR PATCH T-DERMAL SCH (08:49)
[2017-11-17] MEDS: BENZTROPINE MESYLATE 1 MG TAB PO SCH ×2 (08:50→20:16)
[2017-11-17] MEDS: LORazepam 0.5 MG TAB PO PRN (08:50)
[2017-11-17] MEDS: OLANZapine 5 MG TAB PO SCH ×2 (08:50→20:16)
[2017-11-17] MEDS: REMOVE OLD PATCH T-DERMAL SCH (09:00)
[2017-11-17 12:02] LABS: BICARBONATE 28.1 MEQ/L (21.0-32.0); CALCIUM 9.1 MG/DL (8.5-10.1); CREATININE 0.64 MG/DL (0.50-1.00)
--- NOTE | 2017-11-17 13:31 | HHI.PYPN ---
Subjective Remarks This is a request for second opinion. Admission note was reviewed and I agree with the history. Patient was seen and case was discussed with nursing. Patient minimizes her behavior before admission. Today, she has not had any aggressive outbursts. Insight is poor and that she does not see anything wrong with her behavior or her way of life. Denies auditory or visual hallucinations. Mental Status Examination Appearance: Disheveled Consciousness: Alert Orientation: Person, Place, Date/Time Motor Activity: Normal gait Speech: Pressured, Rapid Language: Adequate Fund of Knowledge: Poor Attention and Concentration: Easily Distracted Memory: Impaired Mood: Irritable Affect: Irritable, Labile Thought Process & Associations: Disorganized, Tangential Thought Content: Preoccupations, Delusional Hallucination Type: None Delusion Type: Paranoid Suicidal Ideation: No Suicidal Plan: No Suicidal Intention: No Homicidal Ideation: No Homicidal Plan: No Homicidal Intention: No Insight: Poor Judgment: Poor Results Labs Test 11/17/17 11:15 Blood Urea Nitrogen 28 MG/DL Creatinine 0.64 MG/DL Random Glucose 88 MG/DL Calcium Level 9.1 MG/DL Sodium Level 141 MEQ/L Potassium Level 4.3 MEQ/L Chloride Level 106 MEQ/L Carbon Dioxide Level 28.1 MEQ/L Anion Gap 7 MEQ/L Estimat Glomerular Filtration Rate 93 ML/MIN Vitals/IOs Vital Signs Date Time Temp Pulse Resp B/P (MAP) Pulse Ox O2 Delivery O2 Flow Rate FiO2 11/17/17 06:00 97.2 76 16 128/68 (88) 98 11/15/17 11:19 Room Air Assessment & Plan Problem List: (1) Schizophrenia ICD Codes: F20.9 - Schizophrenia Status: Acute Assessment & Plan I agree with the first opinion to continue petition. Criteria include acute psychosis Justification for Cont. Inpt. Patient would decompensate in a less restrictive setting Request HC Surrog/Guard Advoc?: Yes Joey Montez DO November 17, 2017 13:30
[2017-11-17] MEDS: ALUMINUM/MAGNESIUM/SIMETH 30 ML CUP PO PRN (15:04)
[2017-11-17 18:45] VITALS: BP 135/57; PULSE 81; RESP 17; TEMP 97.6; O2SAT 98
[2017-11-17] MEDS: ACETAMINOPHEN 325 MG TAB PO PRN (22:18)
[2017-11-18] MEDS: ACETAMINOPHEN 325 MG TAB PO PRN ×3 (05:17→21:25)
[2017-11-18 05:38] VITALS: BP 152/71; PULSE 58; RESP 16; TEMP 97.1; O2SAT 100
[2017-11-18] MEDS: NICOTINE 21 MG/24 HR PATCH T-DERMAL SCH (09:00)
[2017-11-18] MEDS: BENZTROPINE MESYLATE 1 MG TAB PO SCH ×2 (09:00→21:22)
[2017-11-18] MEDS: LORazepam 0.5 MG TAB PO PRN (09:00)
[2017-11-18] MEDS: OLANZapine 5 MG TAB PO SCH ×2 (09:00→21:22)
[2017-11-18] MEDS: REMOVE OLD PATCH T-DERMAL SCH (09:00)
--- NOTE | 2017-11-18 13:46 | HHI.PYPN ---
Subjective Remarks Patient was seen and case discussed with nursing. Patient had swelling of her lower feet and nursing suggesting a consult. Patient says she was feeling sad this morning but denies suicidal or homicidal ideation intent or plan. She is concerned about the future and her living situation. Social with others Mental Status Examination Appearance: Disheveled Consciousness: Alert Orientation: Person, Place, Date/Time Motor Activity: Normal gait Speech: Pressured, Rapid Language: Adequate Fund of Knowledge: Poor Attention and Concentration: Easily Distracted Memory: Impaired Mood: Irritable Affect: Irritable, Labile Thought Process & Associations: Disorganized, Tangential Thought Content: Preoccupations, Delusional Hallucination Type: None Delusion Type: Paranoid Suicidal Ideation: No Suicidal Plan: No Suicidal Intention: No Homicidal Ideation: No Homicidal Plan: No Homicidal Intention: No Insight: Poor Judgment: Poor Results Vitals/IOs Vital Signs Date Time Temp Pulse Resp B/P (MAP) Pulse Ox O2 Delivery O2 Flow Rate FiO2 11/18/17 05:38 97.1 58 16 152/71 (98) 100 11/15/17 11:19 Room Air Assessment & Plan Problem List: (1) Schizophrenia ICD Codes: F20.9 - Schizophrenia Status: Acute Assessment & Plan Patient would decompensate in a less restrictive setting Justification for Cont. Inpt. Continue current treatment plan Request HC Surrog/Guard Advoc?: Yes Joey Montez DO November 18, 2017 13:46
[2017-11-18] MEDS ORDERED: SENNOSIDES 8.6 MG TAB PO PRN (15:30)
[2017-11-18] MEDS ORDERED: MAGNESIUM HYDROXIDE SUSP 30 ML CUP PO PRN (15:30)
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
[2017-11-18] MEDS: FUROSEMIDE 40 MG TAB PO SCH (17:22)
[2017-11-18] MEDS: PANTOPRAZOLE SOD 40 MG DELAYED RELEASE TAB PO SCH (17:22)
[2017-11-18] MEDS: DOCUSATE SODIUM 50 MG/SENNA 8.6 MG TAB PO SCH (21:22)
--- NOTE | 2017-11-18 23:24 | RADRPT ---
EXAM DATE/TIME: 11/18/2017 22:24 [facility] COMPARISON: No previous studies available for comparison. INDICATIONS : Bilateral leg swelling. MEDICAL HISTORY : Hypertension. Colitis. Schizophrenia. Tachycardia. SURGICAL HISTORY : Appendectomy.Hysterectomy. Tubal ligation.Right breast tumor removed. ENCOUNTER: Initial ACUITY: 1 day PAIN SCORE: 4/10 LOCATION: Bilateral leg. TECHNIQUE: Venous ultrasound of the left and right leg was performed from the inguinal ligament to the proximal calf. Real-time, color Doppler and spectral tracing, compression and augmentation techniques were us ed. FINDINGS: RIGHT LEG: There is normal compressibility of the deep venous system from the inguinal region to the proximal ca lf. No echogenic clot is seen in the lumen of the common femoral, femoral, popliteal, and posterior tibial veins. There is a normal response of the venous system to proximal and distal augmentation an d respiration. LEFT LEG: There is normal compressibility of the deep venous system from the inguinal region to the proximal ca lf. No echogenic clot is seen in the lumen of the common femoral, femoral, popliteal, and posterior tibial veins. There is a normal response of the venous system to proximal and distal augmentation an d respiration. CONCLUSION: 1. Negative for deep venous thrombosis. Manolo Blair MD on November 18, 2017 at 23:21 Board Certified Radiologist. This report was verified electronically.
[2017-11-19 06:27] VITALS: BP 117/58; PULSE 70; RESP 19; TEMP 97.4; O2SAT 100
[2017-11-19] MEDS: PANTOPRAZOLE SOD 40 MG DELAYED RELEASE TAB PO SCH (08:25)
[2017-11-19] MEDS: DOCUSATE SODIUM 50 MG/SENNA 8.6 MG TAB PO SCH ×2 (08:25→21:19)
[2017-11-19] MEDS: OLANZapine 5 MG TAB PO SCH ×2 (08:26→21:19)
[2017-11-19] MEDS: BENZTROPINE MESYLATE 1 MG TAB PO SCH ×2 (08:26→21:19)
[2017-11-19] MEDS: FUROSEMIDE 40 MG TAB PO SCH (08:26)
[2017-11-19] MEDS: REMOVE OLD PATCH T-DERMAL SCH (08:28)
[2017-11-19] MEDS: NICOTINE 21 MG/24 HR PATCH T-DERMAL SCH (08:29)
[2017-11-19] MEDS ORDERED: POTASSIUM CHLORIDE 10 MEQ CONTROLLED RELEASE TAB PO SCH (09:00)
[2017-11-19] MEDS: LACTULOSE SYRUP 20 GM/30 ML CUP PO PRN (10:00)
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
--- NOTE | 2017-11-19 15:41 | PD.TTN ---
Patient Problems 1. Discharge planning 2. Medication compliance 3. Knowledge deficit 4. Lack of coping skills Progress Toward Goals Provider Present: Dr. Neeru Chavez (11/23/17- Pt. needs to ramain for further stabilization.) Psychiatric Counselors Present: Bernard Aguilar Jr., [facility] Group Spec/RT/OT/HERCULES Present: DELISA Harris (11/23/17- Pt. does not attend groups.) Thor Muniz November 19, 2017 15:41
[2017-11-19 17:01] VITALS: BP 116/56; PULSE 61; RESP 18; TEMP 98.1; O2SAT 100
--- NOTE | 2017-11-19 17:14 | HHI.PYPN ---
Subjective Remarks Patient seen for follow-up, chart reviewed. Discussion nursing staff reported the patient slept last evening, had ultrasound of lower extremities which was negative for any abnormal findings, not making any bizarre statements overnight guarded. Patient found lying hospital bed noted B guarded and irritable superficially cooperative interview today. Patient states that she does not want continue to be in the hospital stating "I will in here". He was unable to elaborate as to why she is having this thought. Patient states that she reports tolerating medications well. Patient refuses to continue interview and asks typewriter mechanic to get out her room. Review of Systems Except as stated in HPI: all other systems reviewed are Neg Mental Status Examination Appearance: Disheveled Consciousness: Alert Orientation: Person, Place, Date/Time Motor Activity: Normal gait Speech: Pressured, Rapid Language: Adequate Fund of Knowledge: Poor Attention and Concentration: Easily Distracted Memory: Impaired Mood: Irritable Affect: Irritable Thought Process & Associations: Disorganized, Tangential Thought Content: Preoccupations, Delusional Hallucination Type: None Delusion Type: Paranoid Suicidal Ideation: No Suicidal Plan: No Suicidal Intention: No Homicidal Ideation: No Homicidal Plan: No Homicidal Intention: No Insight: Poor Judgment: Poor Results Vitals/IOs Vital Signs Date Time Temp Pulse Resp B/P (MAP) Pulse Ox O2 Delivery O2 Flow Rate FiO2 11/19/17 17:01 98.1 61 18 116/56 (76) 100 11/15/17 11:19 Room Air Assessment & Plan Problem List: (1) Schizophrenia ICD Codes: F20.9 - Schizophrenia Status: Acute Assessment & Plan Patient as per nursing report appears to have been improving but was noted to be irritable and not cooperative interview today with typewriter mechanic. Patients in this unit currently very disruptive which may be contributing to patient's irritability. We will continue current treatment for now as unit milieu has been tense recently due to other patients agitations. If patient continues to have labile mood we will consider continue increasing mood stabilization agent. Will have patient moved to a different unit. Will continue monitor mood and behavior. Discharge planning in progress. Justification for Cont. Inpt. At risk for further decompensation if at lower level of care Discharge Planning To be determined. Request HC Surrog/Guard Advoc?: Yes Jossue Chavez MD November 19, 2017 17:14
[2017-11-19] MEDS: LACTIC ACID (AMMONIUM LACTATE) 12% LOTION 225 GM BTL TOPICAL SCH (21:00)
[2017-11-20 06:13] VITALS: BP 117/58; PULSE 75; RESP 16; TEMP 97.3; O2SAT 96
[2017-11-20] MEDS: REMOVE OLD PATCH T-DERMAL SCH (09:00)
[2017-11-20] MEDS: LACTULOSE SYRUP 20 GM/30 ML CUP PO PRN (09:01)
[2017-11-20] MEDS: ACETAMINOPHEN 325 MG TAB PO PRN (09:02)
[2017-11-20] MEDS: FUROSEMIDE 20 MG TAB PO SCH (09:05)
[2017-11-20] MEDS: BENZTROPINE MESYLATE 1 MG TAB PO SCH ×2 (09:05→21:09)
[2017-11-20] MEDS: NICOTINE 21 MG/24 HR PATCH T-DERMAL SCH (09:05)
[2017-11-20] MEDS: PANTOPRAZOLE SOD 40 MG DELAYED RELEASE TAB PO SCH (09:05)
[2017-11-20] MEDS: OLANZapine 5 MG TAB PO SCH ×2 (09:05→21:10)
[2017-11-20] MEDS: DOCUSATE SODIUM 50 MG/SENNA 8.6 MG TAB PO SCH ×2 (09:05→21:09)
[2017-11-20] MEDS: LACTIC ACID (AMMONIUM LACTATE) 12% LOTION 225 GM BTL TOPICAL SCH ×2 (09:09→21:11)
--- NOTE | 2017-11-20 13:31 | HHI.PR ---
Subjective Remarks Follow-up visit for bilateral leg edema, constipation with rectal bleeding and HTN. Patient seen and examined in her room resting comfortably in no acute distress. She reports that the swelling in her legs has improved greatly, but still noticing some swelling especially when she stands up. She denies any fevers, chill, N/V/D, SOB, cough, chest pain, constipation or dysuria. She reports that she has had less pain with defecation with less blood in the stool since she has been receiving stool softeners while she is here. Spoke with nurse who has no acute complaints. Objective Vitals Vital Signs Date Time Temp Pulse Resp B/P (MAP) Pulse Ox O2 Delivery O2 Flow Rate FiO2 11/20/17 06:13 97.3 75 16 117/58 (77) 96 11/19/17 17:01 98.1 61 18 116/56 (76) 100 I/O 11/19/17 11/19/17 11/19/17 11/20/17 11/20/17 11/20/17 06:59 14:59 22:59 06:59 14:59 22:59 Intake Total 150 ml Balance 150 ml Intake Oral 150 ml # Voids 1 # Bowel Movements 1 Result Diagram: 11/17/17 1115 Imaging Last Impressions Lower Extremity Ultrasound 11/18/17 0000 Signed Impressions: Service Date/Time: Saturday, November 18, 2017 22:24 - CONCLUSION: 1. Negative for deep venous thrombosis. Manolo Blair MD Objective Remarks GENERAL: This is a well-nourished, well-developed disheveled female patient, in no apparent distress. Awake and alert SKIN: Cool and dry. HEAD: Atraumatic. EYES: Extraocular motions intact. No scleral icterus. No injection or drainage. ENT: Nose without bleeding. Airway patent. CARDIOVASCULAR: Regular rate and rhythm without murmurs, gallops, or rubs. RESPIRATORY: Clear to auscultation. Breath sounds equal bilaterally. No wheezes , rales, or rhonchi. GASTROINTESTINAL: Abdomen soft, non-tender, nondistended. Normoactive bowel sounds. MUSCULOSKELETAL: Extremities without clubbing, cyanosis. Varicosities noted bilateral lower extremity. Trace bilateral lower extremity edema with venous stasis changes noted. NEUROLOGICAL: Awake and alert. Cranial nerves II through XII grossly intact. Motor and sensory grossly within normal limits. Nonfocal. Normal speech. A/P Problem List: (1) HTN (hypertension) ICD Code: I10 - Essential (primary) hypertension (2) Edema ICD Code: R60.9 - Edema, unspecified (3) Schizophrenia ICD Code: F20.9 - Schizophrenia Status: Acute Assessment and Plan Patient is a 67-year-old female with history of HTN who initially came into the hospital after she was found wandering in traffic, screaming obscenities, aggressive and paranoid. She is not admitted to inpatient psychiatry unit for further evaluation. Consulted for assistance with bilateral lower extremity swelling management. Schizophrenia paranoia, psychosis, anxiety -Managed by psychiatry team Bilateral lower extremity edema with venous stasis changes Doppler negative for DVT -Decrease Lasix to 20 mg daily. Hyperkalemic a few days ago. Discontinue KCl. -Lac-Hydrin bilateral lower extremity -Leg edema nearly resolved, 2 more days of Lasix then DC - Check BMP in the am - Discussed with patient, varicose veins Rectal bleed Chronic constipation -H&H stable - external hemorrhoid and possible internal hemorrhoid -Constipation resolved, less rectal pain and rectal bleeding with stools - continue Ginny-Colace Acid reflux, dyspepsia Possible GERD -Pantoprazole daily HTN, stable -Continue Lasix for now, on discharge patient may benefit with low-dose lisinopril -Monitor BP trend Dysuria UA is negative Patient has no complaints of dysuria at present -Monitor DVT prop ambulatory Discussed with patient and nurse. Sridhar Baires November 20, 2017 13:31
--- NOTE | 2017-11-20 16:48 | HHI.PYPN ---
Subjective Remarks Patient seen for follow, chart reviewed. Discussion nursing staff reported the patient seclusive, compliant with medications, denying any perceptual disturbances, continues report having the pain but improving with rest, refused labs this morning. Patient was found lying hospital bed noted B, cooperative. Patient states that she slept well, that her mood has been "alright" but feeling depressed due to her psychosocial stressors. Patient states that she does not actually want to end her life but "I be happy if I was in heaven". Patient denies any perceptual disturbances, states that her leg discomfort/pain is somewhat better. Review of Systems Except as stated in HPI: all other systems reviewed are Neg Mental Status Examination Appearance: Disheveled Consciousness: Alert Orientation: Person, Place, Date/Time Motor Activity: Normal gait Speech: Pressured, Rapid Language: Adequate Fund of Knowledge: Poor Attention and Concentration: Easily Distracted Memory: Impaired Mood: Sad Affect: Irritable, Sad Thought Process & Associations: Disorganized (Less so today) Thought Content: Preoccupations Hallucination Type: None Delusion Type: Paranoid (Less so today) Suicidal Ideation: No Suicidal Plan: No Suicidal Intention: No Homicidal Ideation: No Homicidal Plan: No Homicidal Intention: No Insight: Poor Judgment: Poor Results Vitals/IOs Vital Signs Date Time Temp Pulse Resp B/P (MAP) Pulse Ox O2 Delivery O2 Flow Rate FiO2 11/20/17 06:13 97.3 75 16 117/58 (77) 96 Intake and Output 11/20/17 11/20/17 11/21/17 08:00 16:00 00:00 Intake Total 150 ml Balance 150 ml Assessment & Plan Problem List: (1) Schizophrenia ICD Codes: F20.9 - Schizophrenia Status: Acute Assessment & Plan Patient this time noted to have less disorganization, appears to be responding to treatment, endorsing depressed mood now as insight appears to be improving. We will continue current treatment as patient appears to responding well. Continue to monitor mood and behavior. Discharge planning in progress. Justification for Cont. Inpt. At risk for further decompensation if at lower level of care Discharge Planning To be determined. Request HC Surrog/Guard Advoc?: Yes Jossue Chavez MD November 20, 2017 16:47
[2017-11-20 18:01] VITALS: BP 108/59; PULSE 79; RESP 16; TEMP 98; O2SAT 99
[2017-11-21 06:35] VITALS: BP 131/83; PULSE 73; RESP 16; TEMP 97.7; O2SAT 98
[2017-11-21] MEDS: LACTIC ACID (AMMONIUM LACTATE) 12% LOTION 225 GM BTL TOPICAL SCH (08:39)
[2017-11-21] MEDS: BENZTROPINE MESYLATE 1 MG TAB PO SCH (08:40)
[2017-11-21] MEDS: FUROSEMIDE 20 MG TAB PO SCH (08:40)
[2017-11-21] MEDS: OLANZapine 5 MG TAB PO SCH (08:40)
[2017-11-21] MEDS: DOCUSATE SODIUM 50 MG/SENNA 8.6 MG TAB PO SCH (08:40)
[2017-11-21] MEDS: NICOTINE 21 MG/24 HR PATCH T-DERMAL SCH (08:40)
[2017-11-21] MEDS: PANTOPRAZOLE SOD 40 MG DELAYED RELEASE TAB PO SCH (08:40)
[2017-11-21] MEDS: REMOVE OLD PATCH T-DERMAL SCH (08:40)
[2017-11-21] MEDS: ACETAMINOPHEN 325 MG TAB PO PRN (09:15)
--- NOTE | 2017-11-21 12:08 | HHI.PR ---
Subjective Remarks Follow-up visit for bilateral leg edema, constipation, and hypertension. Spoke with nurse who does not report any acute changes and patient, she did refuse lab work this morning. Patient is seen and examined in her room, reports some constipation today. She denies any fevers, chills, nausea, vomiting, diarrhea, shortness of breath, cough, chest pain, headaches or dizziness. She voices no other acute concerns at the moment. Objective Vitals Vital Signs Date Time Temp Pulse Resp B/P (MAP) Pulse Ox O2 Delivery O2 Flow Rate FiO2 11/21/17 06:35 97.7 73 16 131/83 (99) 98 11/20/17 18:01 98.0 79 16 108/59 (75) 99 I/O 11/20/17 11/20/17 11/20/17 11/21/17 11/21/17 11/21/17 07:00 15:00 23:00 07:00 15:00 23:00 Intake Total 150 ml Balance 150 ml Intake Oral 150 ml Result Diagram: 11/17/17 1115 Imaging Last Impressions Lower Extremity Ultrasound 11/18/17 0000 Signed Impressions: Service Date/Time: Saturday, November 18, 2017 22:24 - CONCLUSION: 1. Negative for deep venous thrombosis. Manolo Blair MD Objective Remarks GENERAL: This is a well-nourished, well-developed disheveled female patient, in no apparent distress. Awake and alert SKIN: Cool and dry. HEAD: Atraumatic. EYES: Extraocular motions intact. No scleral icterus. No injection or drainage. ENT: Nose without bleeding. Airway patent. CARDIOVASCULAR: Regular rate and rhythm without murmurs, gallops, or rubs. RESPIRATORY: Clear to auscultation. Breath sounds equal bilaterally. No wheezes , rales, or rhonchi. GASTROINTESTINAL: Abdomen soft, non-tender, nondistended. Normoactive bowel sounds. MUSCULOSKELETAL: Extremities without clubbing, cyanosis. Varicosities noted bilateral lower extremity. Trace bilateral lower extremity edema with venous stasis changes noted. NEUROLOGICAL: Awake and alert. Cranial nerves II through XII grossly intact. Motor and sensory grossly within normal limits. Nonfocal. Normal speech. A/P Problem List: (1) HTN (hypertension) ICD Code: I10 - Essential (primary) hypertension (2) Edema ICD Code: R60.9 - Edema, unspecified (3) Schizophrenia ICD Code: F20.9 - Schizophrenia Status: Acute Assessment and Plan Patient is a 67-year-old female with history of HTN who initially came into the hospital after she was found wandering in traffic, screaming obscenities, aggressive and paranoid. She is not admitted to inpatient psychiatry unit for further evaluation. Consulted for assistance with bilateral lower extremity swelling management. Schizophrenia paranoia, psychosis, anxiety -Managed by psychiatry team Bilateral lower extremity edema with venous stasis changes Doppler negative for DVT -Decrease Lasix to 20 mg daily. Hyperkalemic a few days ago. Discontinue KCl. -Lac-Hydrin bilateral lower extremity -Leg edema nearly resolved. Can discontinue Lasix on discharge. -BMP refused this morning, can follow-up with PCP for ongoing labs. - Discussed with patient, varicose veins Rectal bleed Chronic constipation -H&H stable - external hemorrhoid and possible internal hemorrhoid -Constipation continue stool softeners, as needed milk of magnesia. Acid reflux, dyspepsia Possible GERD -Pantoprazole daily HTN, controlled -Plans for discharge today. Can follow-up with primary care provider for ongoing blood pressure monitoring Dysuria UA is negative Patient has no complaints of dysuria at present -Monitor DVT prop ambulatory Discussed with patient, nurse, Dr. Chavez. Sridhar Baires November 21, 2017 12:08
[2017-11-21] MEDS ORDERED: PANT40TA3 PO (14:25)
[2017-11-21] MEDS ORDERED: Benztropine PO (14:25)
[2017-11-21] MEDS ORDERED: OLAN5TAB PO (14:25)
[2017-11-21] MEDS ORDERED: PERI PO (14:25)
--- NOTE | 2017-11-21 14:27 | HHI.DS ---
Psychiatry Discharge Summary Inpatient Psychiatric care?: Yes Advance Directive: No Reason Not Provided: Due to Patient Condition Mental Health AdvanceDirective: Yes Name and Number: NONE Health Care Proxy: No Admission Admission Date November 15, 2017 at 14:47 Admission Diagnosis: (1) Schizophrenia ICD Code: F20.9 - Schizophrenia Brief History Patient is a 67-year-old woman, , has 1 adult daughter, unemployed, no social security income, homeless, with a past psychiatric history of schizophrenia, multiple psychiatric admissions, no previous suicide attempts, no outpatient mental health follow-up, and noncompliance with treatment, with a past medical history significant for hypertension, who was brought into the ED after she was found wandering in traffic screaming obscenities, aggressive behavior and paranoia which patient was admitted to the inpatient psychiatry for further evaluation and management. Patient during evaluation in the ED were required ETO of Zyprexa. Patient was found in blade on unit noted to be superficially cooperative, guarded, irritable. Patient states that he was denied income there was preservative on her having SSI, Medicaid and Medicare previously and currently worried about not having income or money to pay for her prescriptions when discharged from the hospital. Patient states she is walking on the street and also had brought her here but did not elaborate. Patient reports having decreased sleep, no change in appetite or energy but her mood has been "angry" she denies any auditory or visual hallucinations of the patient appears to be internally preoccupied at times. Patient refused to continue to elaborate on her history stating that she was upset at the office for bringing to the hospital and she will be discharged without any services anyway. Past psychiatric history: Previous psychiatric diagnoses schizophrenia, multiple psychiatric admissions, no previous suicide attempts, no outpatient mental health follow-up, reports previous medication trials include loxapine and Cogentin. Substance use history: Patient denies any alcohol or drug use. Past medical history: Hypertension Allergies: Haldol, penicillin, cortisone Social history: , has 1 adult daughter, Renetta Hernandez [phone], unemployed, no income, states [facility]. Homeless Tobacco Use In Past 30 Days: No Tobacco Past 30 Days Alcohol Use: 2-3 Times Per Week Results Blood Pressure 131 / 83 Vital Signs Date Time Temp Pulse Resp B/P (MAP) Pulse Ox O2 Delivery O2 Flow Rate FiO2 11/21/17 06:35 97.7 73 16 131/83 (99) 98 Laboratory Results Test 11/15/17 10:57 11/16/17 06:58 [place] Level LESS THAN 0.1 MEQ/L Valproic Acid (Depakene) Level LESS THAN 3 MCG/ML Cholesterol Level 141 MG/DL (120-200) HDL Cholesterol 56.2 MG/DL (40.0-60.0) Hemoglobin A1c 5.9 % (4.3-6.0) LDL Cholesterol 68 MG/DL (0-99) Triglycerides Level 85 MG/DL (42-150) Imaging Last Impressions Lower Extremity Ultrasound 11/18/17 0000 Signed Impressions: Service Date/Time: Saturday, November 18, 2017 22:24 - CONCLUSION: 1. Negative for deep venous thrombosis. Manolo Blair MD Medications Approp Antipsych med options 1 - Minimum of three failed multiple trials of monotherapy. 2 - Documented plan to taper to monotherapy due to previous use of multiple meds OR cross-taper in progress at D/C. 3 - Documentation of augmentation of Clozapine. 4 - Justification other than those listed in allowable values 1-3, document here : Discharge Pt Condition on Discharge: Stable Discharge Disposition: Discharge Home Discharge Instructions Diet Instructions: As Tolerated, No Restrictions Activities you can perform: Regular-No Restrictions Scheduled Appointment: Alberto Cadet Mental Status Examination Appearance: Disheveled Consciousness: Alert Orientation: Person, Place, Date/Time Motor Activity: Normal gait Speech: Pressured, Rapid Language: Adequate Fund of Knowledge: Poor Attention and Concentration: Easily Distracted Memory: Impaired Mood: Sad Affect: Irritable, Sad Thought Process & Associations: Disorganized (Less so today) Thought Content: Preoccupations Hallucination Type: None Delusion Type: Paranoid (Less so today) Suicidal Ideation: No Suicidal Plan: No Suicidal Intention: No Homicidal Ideation: No Homicidal Plan: No Homicidal Intention: No Insight: Poor Judgment: Poor Discharge/Advance Care Plan Health Problems: (1) Schizophrenia Goals to promote your health * To prevent worsening of your condition and complications * To maintain your health at the optimal level Directions to meet your goals Take your medications as prescribed Follow your dietary instruction Follow activity as directed Keep your appointments as scheduled Take your immunizations and boosters as scheduled If your symptoms worsen call your PCP, if no PCP go to Urgent Care Center or Emergency Room For 29/01 questions related to your inpatient stay or results of tests pending at discharge, please contact Dr. Jossue Chavez at Smoking is Dangerous to Your Health. Avoid second hand smoking Jossue Chavez MD November 21, 2017 14:27
--- NOTE | 2017-11-21 15:38 | PD.TTN ---
Patient Problems 1. Discharge planning 2. Medication compliance 3. Knowledge deficit 4. Lack of coping skills Progress Toward Goals Provider Present: Dr. Bebeto Navarro, Dr. Neeru Chavez (11/23/17- Pt. needs to ramain for further stabilization.) Provider Input: 11/21/17- Pt. still meets criteria. Psychiatric Counselors Present: Birdie Bush LCSW, Bernard Aguilar Jr., [facility] Psych Therapist Input: 11/21/17-motivated for treatment, D/C today Group Spec/RT/OT/HERCULES Present: DELISA Harris (11/23/17- Pt. does not attend groups.) Group Spec/RT/OT/HERCULES Input: 11/21/17- Pt. does not attend groups Thor Muniz November 21, 2017 15:38
[2017-11-21 16:46] LABS: BICARBONATE 28.1 MEQ/L (21.0-32.0); CALCIUM 8.7 MG/DL (8.5-10.1); CREATININE 0.95 MG/DL (0.50-1.00)
== END 2017-11-21 17:30 | disposition home or self-care (01) | DRG 885 ==
LOC: NEPJ 10:23 → NEDA 14:47 → H270 15:25 → H260 11-19 22:29
PROVIDERS: ADMIT Student in an Organized Health Care Education/Training Program; ATTEND Student in an Organized Health Care Education/Training Program
DX: F20.9 Schizophrenia, unspecified (principal); E87.5 Hyperkalemia; I10 Essential (primary) hypertension; Z91.19 Patient's noncompliance with other medical treatment and regimen; Z59.0 Homelessness; Z72.0 Tobacco use; K59.09 Other constipation; K64.4 Residual hemorrhoidal skin tags; R60.0 Localized edema; R30.0 Dysuria
CPT/HCPCS: 80048; 80053; 80061; 80164; 80178; 80185; 81001; 83036; 85025; 93005; 93970; 96372; Q0163

== ENCOUNTER 2018-02-20 11:20 | Inpatient (IN) ==
[2018-02-20 13:39] LABS: Baso % (Auto) 0.5 % (0.0-2.0); Eos # (Auto) 0.1 th/mm3 (0.0-0.4); Eos % (Auto) 1.1 % (0.0-4.0); Hematocrit 40.9 % (35.0-46.0); Hemoglobin 13.8 gm/dL (11.6-15.3); Lymph # (Auto) 1.7 th/mm3 (1.0-4.8); Lymph % (Auto) 19.2 % (9.0-44.0); Mean Corpuscular HGB Conc 33.9 % (32.0-36.0); Mean Corpuscular Hemoglobin 30.8 pg (27.0-34.0); Mean Corpuscular Volume 90.9 fL (80.0-100.0); Mean Platelet Volume 8.1 fL (7.0-11.0); Mono # (Auto) 0.6 th/mm3 (0.0-0.9); Mono % (Auto) 7.1 % (0.0-8.0); Neut # (Auto) 6.4 th/mm3 (1.8-7.7); Neut % (Auto) 72.1 % (16.0-70.0); Platelet Count 259 th/mm3 (150-450); Red Blood Count 4.49 mil/mm3 (4.00-5.30); Red Cell Distribution Width 15.2 % (11.6-17.2); White Blood Count 8.9 th/mm3 (4.0-11.0)
[2018-02-20 13:46] LABS: Amphetamine Screen,Urine Neg (Neg); Barbiturate Screen,Urine Neg (Neg); Cannabinoid Screen,Urine Neg (Neg); Cocaine Screen,Urine Neg (Neg)
[2018-02-20 13:54] LABS: Opiate Screen,Urine Neg (Neg)
[2018-02-20 13:58] LABS: Alanine Aminotransferase 16 U/L (10-53); Anion Gap 8 meq/L (5-15); Aspartate Aminotransferase 17 U/L (15-37); Blood Urea Nitrogen 13 mg/dL (7-18); Calcium 8.6 mg/dL (8.5-10.1); Carbon Dioxide 26.4 meq/L (21.0-32.0); Chloride 105 meq/L (98-107); Glomerular Filtration Rate 77 mL/min (>89); Glucose,Random 84 mg/dL (74-106); Sodium 139 meq/L (136-145)
[2018-02-20 14:08] LABS: Alkaline Phosphatase 105 U/L (45-117); Total Protein 7.8 g/dL (6.4-8.2)
--- NOTE | 2018-02-20 14:18 | ED ---
HPI General Chief Complaint: Psychiatric Symptoms Stated Complaint: psych eval Time Seen by Provider: 02/20/18 15:52 Source: patient Mode of arrival: ambulatory Limitations: no limitations History of Present Illness HPI Narrative: 67-year-old female with history of schizophrenia presents to the emergency room voluntarily for suicidal ideation. Patient has a plan to walk out in front of traffic to kill herself. States she has been progressively more depressed over the past several weeks. She has multiple life stressors. She denies any illicit drug use. Does not drink alcohol. Smokes cigarettes when she has the money. Denies any medical complaints at this time. MD complaint: suicidal ideation and feels depressed Onset (ago): week(s) Duration: constant and getting worse History of same: Yes Relieving factors: none Exacerbating factors: none Context: significant life stressor Associated psychiatric symptoms: depression Associated symptoms: denies other symptoms Treatments prior to arrival: none If self harm: admits thoughts of self harm, has plan and has acted on plan Related Data Home Medications Medication Instructions Recorded Confirmed No Known Home Medications 02/09/18 02/20/18 Allergies Allergy/AdvReac Type Severity Reaction Status Date / Time cortisone Allergy Severe PER PT. Verified 02/09/18 15:35 WAS CODED haloperidol Allergy Severe CHEST PAIN Verified 02/09/18 15:35 penicillin G Allergy Severe SWELLING Verified 02/09/18 15:35 Review of Systems ROS: all other systems reviewed are negative PMFSH Social History Social History Substance History: No History of Abuse Second Hand Smoke Exposure: No Smoking Status: Current every day smoker Tobacco Type: Cigarettes How Often Do You Have a Drink Containing Alcohol: 2 to 4 times a month Recent Travel in [facility] within the Last 8 Weeks: No Recent Out of Country Travel within the Last 8 Weeks: No Immunization History Tetanus Immunization: Unsure Exam Narrative Exam Narrative: GENERAL: Well-nourished, well-developed female in no acute distress. Afebrile. Ambulatory. SKIN: Focused skin assessment warm/dry. HEAD: Normocephalic. EYES: No scleral icterus. No injection or drainage. NECK: Supple, trachea midline. No JVD or lymphadenopathy. CARDIOVASCULAR: Regular rate and rhythm without murmurs, gallops, or rubs. RESPIRATORY: Breath sounds equal bilaterally. No accessory muscle use. PSYCHIATRIC: No delusional thought processes. No hallucinations. Depressed mood. Flat affect. Course Initial Documented Vital Signs Temperature 98 F 02/20/18 11:44 Pulse Rate 76 02/20/18 11:44 Respiratory Rate 18 02/20/18 11:44 Blood Pressure 123/59 L 02/20/18 11:44 Pulse Oximetry 95 02/20/18 11:44 Last Documented Vital Signs Temperature 97.3 F L 02/20/18 17:59 Pulse Rate 66 02/20/18 17:59 Respiratory Rate 16 02/20/18 17:59 Blood Pressure 178/81 H 02/20/18 17:59 Pulse Oximetry 97 02/20/18 17:59 Medical Decision Making MDM Narrative Medical decision making narrative: 67-year-old female with history of schizophrenia presents to the emergency room voluntarily for evaluation of suicidal ideation and depression. Patient has plans to jump in front of traffic to kill herself. She denies any medical complaints. Vital signs stable. Labs reviewed and are unremarkable. She is medically cleared for psychiatric evaluation. Patient will be admitted to the psychiatric unit. Medical Screen Exam Complete: Yes Emergency Medical Condition: Yes Differential Diagnosis Differential Diagnosis: Depression, suicidal ideation, bipolar disorder, schizophrenia Lab Data Lab results reviewed: Yes I reviewed the patient's lab results. Result diagrams: 02/20/18 12:55 02/20/18 12:55 Lab Results 02/20/18 02/20/18 02/20/18 Range/Units 12:55 12:55 12:55 WBC 8.9 (4.0-11.0) th/mm3 RBC 4.49 (4.00-5.30) mil/mm3 Hgb 13.8 (11.6-15.3) gm/dL Hct 40.9 (35.0-46.0) % MCV 90.9 (80.0-100.0) fL MCH 30.8 (27.0-34.0) pg MCHC 33.9 (32.0-36.0) % RDW 15.2 (11.6-17.2) % Plt Count 259 (150-450) th/mm3 MPV 8.1 (7.0-11.0) fL Neut % (Auto) 72.1 H (16.0-70.0) % Lymph % (Auto) 19.2 (9.0-44.0) % Bartholomew % (Auto) 7.1 (0.0-8.0) % Eos % (Auto) 1.1 (0.0-4.0) % Baso % (Auto) 0.5 (0.0-2.0) % Neut # (Auto) 6.4 (1.8-7.7) th/mm3 Lymph # (Auto) 1.7 (1.0-4.8) th/mm3 Bartholomew # (Auto) 0.6 (0.0-0.9) th/mm3 Eos # (Auto) 0.1 (0.0-0.4) th/mm3 Baso # (Auto) 0.0 (0.0-0.2) th/mm3 WBC Differential . Differential Comment Auto diff final Sodium 139 (136-145) meq/L Potassium 4.0 (3.5-5.1) meq/L Chloride 105 (98-107) meq/L Carbon Dioxide 26.4 (21.0-32.0) meq/L Anion Gap 8 (5-15) meq/L BUN 13 (7-18) mg/dL Creatinine 0.75 (0.50-1.00) mg/dL Estimated GFR 77 L (>89) mL/min Random Glucose 84 (74-106) mg/dL Calcium 8.6 (8.5-10.1) mg/dL Total Bilirubin 0.7 (0.2-1.0) mg/dL AST 17 (15-37) U/L ALT 16 (10-53) U/L Alkaline Phosphatase 105 (45-117) U/L Total Protein 7.8 (6.4-8.2) g/dL Albumin 4.0 (3.4-5.0) g/dL TSH 1.600 (0.358-3.740) uIU/mL Urine Opiates Screen Neg (Neg) Ur Barbiturates Screen Neg (Neg) Ur Amphetamines Screen Neg (Neg) U Benzodiazepines Scrn Neg (Neg) Urine Cocaine Screen Neg (Neg) U Cannabinoids Screen Neg (Neg) Serum Alcohol Less than 3 (0-5) mg/dL Discharge Plan Discharge Disposition Patient Disposition: 30 Still Patient Discharge Condition Condition: Stable Physicians Team ED Provider: Nicole Sierra ED Midlevel Provider: Arlen Mcmahon Primary Care Provider: UNKNOWN, Attending Provider: Jossue Chavez Status ED Status: Left Department Discharge Information Discharge Date/Time: 02/20/18 16:14
[2018-02-20] MEDS ORDERED: Aluminum/Magnesium/Simethacone Susp 30 ML UDC PO PRN (15:43)
--- NOTE | 2018-02-20 15:59 | ED ---
HPI - Psych - General Source: patient Mode of arrival: ambulatory Limitations: no limitations - History of Present Illness complaint: feels depressed Duration: constant, getting worse Relieving factors: none Exacerbating factors: none Context: significant life stressor Associated psychiatric symptoms: depression Associated symptoms: denies other symptoms Treatments prior to arrival: none - General Chief Complaint: Psychiatric Symptoms Stated Complaint: psych eval Time Seen by Provider: 02/20/18 15:52 - History of Present Illness HPI Narrative: This is a 67-year-old single, homeless, female who presents to this department voluntarily for depression. She is well-known to the psychiatric department with multiple previous admissions typically for psychosis. Reviewed electronic medical record, labs, discuss case with staff. Patient has a negative toxicology screen. She is evaluated and J106. She is found sitting on the side of the bed alert and oriented 4. She states that she is "very very very depressed for the last couple of weeks to the point I would walk out in front of traffic". She endorses suicidal ideation. She denies homicidal ideation she states that she does have auditory hallucinations. Reports that her " sister is out to get me she follows me around it is mean to me". Seems to be paranoid as I observe her hearing out the door is suspicious manner. There does seem to be some internal stimulation and the patient admits to racing thoughts stating that she is "overwhelmed". She states that, "my mind will not slow down". She reports that she has had several external stressors including a loss of her Social Security and her home situation. She reports that her daughter brought her into the facility today and she states that she is ready to get help. She reports in general just feeling confused and overwhelmed with life. Patient states that her daughter brought her to the hospital. When asked if living with her daughter an option and she replied, "she is getting ready to remarry and I would not be able to live with her". ( Tara Marte) - Related Data Home Medications Medication Instructions Recorded Confirmed No Known Home Medications 02/09/18 02/20/18 Allergies Allergy/AdvReac Type Severity Reaction Status Date / Time cortisone Allergy Severe PER PT. Verified 02/09/18 15:35 WAS CODED haloperidol Allergy Severe CHEST PAIN Verified 02/09/18 15:35 penicillin G Allergy Severe SWELLING Verified 02/09/18 15:35 Review of Systems All other systems reviewed negative except as stated in HPI PMFSH - History History Provided By: Patient - Medical History Medical History: Medical History (Last Reviewed 02/20/18 @ 15:52 by ALYCIA Birch) Benign tumor of breast Bipolar 1 disorder Irregular heart beat Schizophrenia - Surgical History Surgical History: Surgical History (Last Reviewed 02/20/18 @ 15:52 by ALYCIA Birch) History of appendectomy History of oophorectomy, unilateral - Tobacco History Second Hand Smoke Exposure: Yes Tobacco Use In Past 30 Days: Yes Smoking Status: Smoker, status unknown Tobacco Type: Cigarettes - Alcohol History How Often Do You Have a Drink Containing Alcohol: 2 to 4 times a month - Substance Use History Substance History: No History of Abuse - Travel History Recent Travel in the [place] Within the Last 8 Weeks: No Recent Travel Out of the Country Within the Last 8 Weeks: No - Immunization History Tetanus Immunization: Unsure Psychiatric History - Psychiatric History Psychiatric Treatment History: History of Psychiatric Treatment History of Inpatient Treatment: Yes Firearms in Home: No Physical Exam - General Limitations: no limitations General appearance: alert, anxious - Head Head exam: atraumatic - Neurological Exam Neurological exam: Present: alert, oriented X3 - Psychiatric Psychiatric exam: Present: normal affect, normal mood Mental Status Examination Appearance: Appropriate Consciousness: Alert Orientation: x4 Motor Activity: Normal gait Speech: Slow Language: Adequate Fund of Knowledge: Adequate Attention and Concentration: Easily distracted Memory: Unremarkable Mood: Sad, Anxious Affect: Sad, Anxious Thought Process & Associations: Intact, Disorganized (At times) Thought Content: Hallucinations Hallucination Type: Auditory, Visual Delusion Type: Paranoid Suicidal Ideation: Yes Suicidal Plan: Yes Suicidal Intention: No Homicidal Ideation: No Homicidal Plan: No Homicidal Intention: No Insight: Fair Judgment: Adequate Initial Documented Vital Signs Temperature 98 F 02/20/18 11:44 Pulse Rate 76 02/20/18 11:44 Respiratory Rate 18 02/20/18 11:44 Blood Pressure 123/59 L 02/20/18 11:44 Pulse Oximetry 95 02/20/18 11:44 Last Documented Vital Signs Temperature 98 F 02/20/18 11:44 Pulse Rate 76 02/20/18 11:44 Respiratory Rate 18 02/20/18 11:44 Blood Pressure 123/59 L 02/20/18 11:44 Pulse Oximetry 95 02/20/18 11:44 MDM - Psych - Diagnosis (1) Schizoaffective disorder, depressive type Status: Acute - Differential Diagnosis Likely: bipolar disorder, depression, acute anxiety - Lab Data Result diagrams: 02/20/18 12:55 02/20/18 12:55 - [facility] Narrative Medical decision making narrative: Patient endorses suicidal by walking into traffic. She does have a history of walking in traffic. Today she presents as extremely depressed, tearful, and anxious. At times she becomes disorganized and seems to be internally stimulated. She advises that in general she feels "confused and extremely overwhelmed". Given her extensive history of schizoaffective disorder and her multiple inpatient admissions. I feel that her current behavior warrants admission for further evaluation and treatment as deemed necessary. (Tara Marte) - Lab Data Lab Results 02/20/18 02/20/18 02/20/18 Range/Units 12:55 12:55 12:55 WBC 8.9 (4.0-11.0) th/mm3 RBC 4.49 (4.00-5.30) mil/mm3 Hgb 13.8 (11.6-15.3) gm/dL Hct 40.9 (35.0-46.0) % MCV 90.9 (80.0-100.0) fL MCH 30.8 (27.0-34.0) pg MCHC 33.9 (32.0-36.0) % RDW 15.2 (11.6-17.2) % Plt Count 259 (150-450) th/mm3 MPV 8.1 (7.0-11.0) fL Neut % (Auto) 72.1 H (16.0-70.0) % Lymph % (Auto) 19.2 (9.0-44.0) % [place] % (Auto) 7.1 (0.0-8.0) % Eos % (Auto) 1.1 (0.0-4.0) % Baso % (Auto) 0.5 (0.0-2.0) % Neut # (Auto) 6.4 (1.8-7.7) th/mm3 Lymph # (Auto) 1.7 (1.0-4.8) th/mm3 [place] # (Auto) 0.6 (0.0-0.9) th/mm3 Eos # (Auto) 0.1 (0.0-0.4) th/mm3 Baso # (Auto) 0.0 (0.0-0.2) th/mm3 WBC Differential . Differential Comment Auto diff final Sodium 139 (136-145) meq/L Potassium 4.0 (3.5-5.1) meq/L Chloride 105 (98-107) meq/L Carbon Dioxide 26.4 (21.0-32.0) meq/L Anion Gap 8 (5-15) meq/L BUN 13 (7-18) mg/dL Creatinine 0.75 (0.50-1.00) mg/dL Estimated GFR 77 L (>89) mL/min Random Glucose 84 (74-106) mg/dL Calcium 8.6 (8.5-10.1) mg/dL Total Bilirubin 0.7 (0.2-1.0) mg/dL AST 17 (15-37) U/L ALT 16 (10-53) U/L Alkaline Phosphatase 105 (45-117) U/L Total Protein 7.8 (6.4-8.2) g/dL Albumin 4.0 (3.4-5.0) g/dL TSH 1.600 (0.358-3.740) uIU/mL Urine Opiates Screen Neg (Neg) Ur Barbiturates Screen Neg (Neg) Ur Amphetamines Screen Neg (Neg) U Benzodiazepines Scrn Neg (Neg) Urine Cocaine Screen Neg (Neg) U Cannabinoids Screen Neg (Neg) Serum Alcohol Less than 3 (0-5) mg/dL
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
[2018-02-21] MEDS: Acetaminophen 325 MG Tablet PO PRN ×2 (13:27→18:31)
[2018-02-21] MEDS: guaiFENesin 600 MG ER Tablet PO SCH ×2 (14:11→21:25)
--- NOTE | 2018-02-21 17:28 | P.CON ---
History of Present Illness Service: [facility] Consult date: 02/21/18 Requesting Physician: Elan Navarro Reason for Consult: Cough, Cold Primary Care Provider: UNKNOWN Family Provider: No Primary Care Physician Chief Complaint: "Cough, cold symptoms" History of Present Illness: Patient is a 67-year-old female with known history of schizophrenia who came into the hospital voluntarily for suicidal ideation. She is now admitted to inpatient psychiatry and for further evaluation. Consulted for assistance with complaints of cough, body aches. Patient seen and examined today. Reports she does not have any other medical conditions. States that she had partial hysterectomy and appendectomy and surgical histories. Patient is very irritable and does not want to talk about her medical condition. States that it is should be all in her chart. Please have cough, no fevers, states that I have "cold symptoms this is just a simple cold." States that she has some aches. Reports she is a current day smoker half a pack per day. She was never diagnosed with any lung problems or lung issues. Denies fevers, chills, nausea, vomiting, diarrhea. Denies chest pain, palpitations, headaches, dizziness. Denies dysuria. Patient was asked when she has any allergies including cortisone, states she does not know she has any allergies but she never said she has allergy to cortisone. Review of Systems All other systems reviewed negative except as stated in HPI PMFSH - History History Provided By: Patient - Medical History Medical History: Medical History (Last Reviewed 02/20/18 @ 15:52 by ALYCIA Birch) Benign tumor of breast Bipolar 1 disorder Irregular heart beat Schizophrenia - Surgical History Surgical History: Surgical History (Last Reviewed 02/20/18 @ 15:52 by ALYCIA Birch) History of appendectomy History of oophorectomy, unilateral - Family History Family History: Family History (Last Updated 02/21/18 @ 17:35 by ALYCIA rPasad) Mother Emphysema of lung Father Asthma Other Parents - Tobacco History Second Hand Smoke Exposure: No Tobacco Use In Past 30 Days: Yes Smoking Status: Current every day smoker Tobacco Type: Cigarettes - Alcohol History How Often Do You Have a Drink Containing Alcohol: 2 to 4 times a month - Substance Use History Substance History: No History of Abuse - Travel History Recent Travel in the [facility] Within the Last 8 Weeks: No Recent Travel Out of the Country Within the Last 8 Weeks: No - Immunization History Tetanus Immunization: Unsure Medications and Allergies Active Medications: Active Medications Acetaminophen (Tylenol) 650 mg PO Q4H PRN PRN Reason: Pain 1-5 or Temp >101F Last Admin: 02/21/18 13:27 Dose: 650 mg Al Hydrox/Mg Hydrox/Simethicone (Mag-Al Plus Susp Liq) 30 ml PO Q6H PRN PRN Reason: DYSPEPSIA Al Hydroxide/Mg Hydroxide (Milk Of Magnesia Liq) 30 ml PO Q12H PRN PRN Reason: Mild Constipation Albuterol (Duoneb Neb (Perez)) 1 ampul NEB Q6HR WHILE AWAKE NEB PEREZ Last Admin: 02/21/18 15:51 Dose: 1 ampul Diphenhydramine HCl (Benadryl) 50 mg PO HS PRN PRN Reason: INSOMNIA Guaifenesin (Mucinex Er) 600 mg PO BID PEREZ Last Admin: 02/21/18 14:11 Dose: 600 mg Hydroxyzine HCl (Atarax) 50 mg PO Q6H PRN PRN Reason: ANXIETY Allergies Allergy/AdvReac Type Severity Reaction Status Date / Time cortisone Allergy Severe PER PT. Verified 02/09/18 15:35 WAS CODED haloperidol Allergy Severe CHEST PAIN Verified 02/09/18 15:35 penicillin G Allergy Severe SWELLING Verified 02/09/18 15:35 Home Medications Medication Instructions Recorded Confirmed Type No Known Home Medications 02/09/18 02/20/18 History Physical Exam Vital signs: Vital Signs 02/20/18 17:59 02/21/18 05:43 02/21/18 14:12 Temperature 97.3 F L 98.1 F Pulse Rate 66 76 Respiratory Rate 16 16 8 L Blood Pressure 178/81 H 146/78 H Pulse Oximetry 97 93 L 02/21/18 15:51 02/21/18 17:16 Temperature 98.6 F Pulse Rate 84 64 Respiratory Rate 17 16 Blood Pressure 165/85 H Pulse Oximetry Intake & Output 02/20/18 02/21/18 02/21/18 18:59 06:59 18:59 Intake Total 240 / 240 240 / 240 Balance 240 / 240 240 / 240 Weight 61.689 kg 61.8 kg Intake: Oral 240 / 240 240 / 240 Narrative: GENERAL: This is a well-nourished, well-developed patient, in no apparent distress. SKIN: Warm and dry. HEENT: Normocephalic. Pupils equal round and reactive. Nose without bleeding. Airway patent. NECK: Trachea midline. Supple. CARDIOVASCULAR: Regular rate and rhythm without murmurs, gallops, or rubs. RESPIRATORY: Course BS. Exp wheezes. GASTROINTESTINAL: Abdomen soft, non-tender, nondistended. Bowel Sounds normoactive x4. MUSCULOSKELETAL: Extremities without clubbing, cyanosis, or edema. NEUROLOGICAL: Awake and alert. Oriented to place, person. No focal neuro deficit. Moves all extremities. Normal speech. Assessment and Plan - Plan Patient is a 67-year-old female with known history of schizophrenia who came into the hospital voluntarily for suicidal ideation. She is now admitted to inpatient psychiatry and for further evaluation. Consulted for assistance with complaints of cough, body aches. Suicidal ideation Depression -Manage by psychiatry team Cough Current day smoker Possibly underlying COPD -Smoker half a pack per day. Nicotine patch. Counseled. -Duo nebs scheduled and as needed, start Singulair. -Check chest x-ray DVT prop ambulatory Code Status: Full Code Discussed Condition With: Patient, nurse Discharge Planning: DC disposition by primary team
--- NOTE | 2018-02-21 17:56 | XR ---
EXAM DATE: 02/21/2018 5:53 PM EDT AGE/SEX: 67 years / Female INDICATIONS: Congestion CLINICAL DATA: This is the patient's initial encounter. Patient reports that signs and symptoms have been present for 2 days and indicates a pain score of 0/10. MEDICAL/SURGICAL HISTORY: None. None. COMPARISON: No prior exams available for comparison. FINDINGS: A single AP view of the chest demonstrates the lungs to be symmetrically aerated without evidence of mass, infiltrate or effusion. The cardiomediastinal contours are unremarkable. Osseous structures a re intact. CONCLUSION: No acute cardiopulmonary findings identified. Electronically signed by: Wilson Arguello MD 02/21/2018 5:54 PM EDT
[2018-02-21] MEDS: Montelukast 10 MG Tablet PO SCH (21:25)
[2018-02-22] MEDS: guaiFENesin 600 MG ER Tablet PO SCH ×2 (08:35→21:26)
[2018-02-22] MEDS: Acetaminophen 325 MG Tablet PO PRN (09:38)
--- NOTE | 2018-02-22 14:10 | P.PN ---
Subjective Interval history: Follow-up visit cough, possible underlying COPD. Patient seen and examined today reports she continues to have cough. Denies any expectoration. She continues to report some congestion. Denies fevers, chills, nausea, vomiting, diarrhea. Denies worsening shortness of breath or dyspnea. Denies chest pain, palpitations. Physical Exam Vital signs: Vital Signs 02/21/18 14:12 02/21/18 15:51 02/21/18 17:16 Temperature 98.6 F Pulse Rate 84 64 Respiratory Rate 8 L 17 16 Blood Pressure 165/85 H Pulse Oximetry 02/21/18 19:31 02/22/18 05:31 Temperature 98.2 F Pulse Rate 62 Respiratory Rate 16 16 Blood Pressure 145/70 H Pulse Oximetry 96 Intake & Output 02/21/18 02/22/18 02/22/18 18:59 06:59 18:59 Intake Total 240 / 240 360 / 360 Output Total 0 / 0 Balance 240 / 240 360 / 360 Intake: Oral 240 / 240 360 / 360 Output: Urine 0 / 0 Other: # Voids 1 Narrative: GENERAL: This is a well-nourished, well-developed patient, in no apparent distress. SKIN: Warm and dry. HEENT: Normocephalic. Pupils equal round and reactive. Nose without bleeding. Airway patent. NECK: Trachea midline. Supple. CARDIOVASCULAR: Regular rate and rhythm without murmurs, gallops, or rubs. RESPIRATORY: Course BS. Exp wheezes. GASTROINTESTINAL: Abdomen soft, non-tender, nondistended. Bowel Sounds normoactive x4. MUSCULOSKELETAL: Extremities without clubbing, cyanosis, or edema. NEUROLOGICAL: Awake and alert. Oriented to place, person. No focal neuro deficit. Moves all extremities. Normal speech. Results - Labs CBC & Chem 7: 02/20/18 12:55 02/20/18 12:55 - Imaging Impressions Chest X-Ray 02/21/18 00:00 CONCLUSION: No acute cardiopulmonary findings identified. Assessment and Plan - Plan Patient is a 67-year-old female with known history of schizophrenia who came into the hospital voluntarily for suicidal ideation. She is now admitted to inpatient psychiatry and for further evaluation. Consulted for assistance with complaints of cough, body aches. Suicidal ideation Depression -Manage by psychiatry team Cough Current day smoker Possibly underlying COPD -Smoker half a pack per day. Nicotine patch. Counseled. -Eric ambrosio scheduled and as needed, start Singulair. -Chest x-ray showed no acute cardiopulmonary findings identified -We will give albuterol INH as needed. -Patient states she is not allergic to cortisone and has not taking cortisone prior. States her father has taken the cortisone and had complications with it. DVT prop ambulatory Stable from Hospitalist standpoint. We will sign off. Reconsult as needed. Code Status: Full code Discussed Condition With: Patient, nursing Discharge Planning: DC disposition by primary team
--- NOTE | 2018-02-22 15:44 | P.PNPSY ---
Subjective Remarks: Patient seen and ag with nurse, chart reviewed, patient compliant medication. Patient continues depressed but is no more cooperative and willing to discuss antidepressants. Patient states her sleep has been disturbed appetite is not as good as it should be. We will offer patient Remeron 15 mg at at bedtime. Patient denies suicidality or voices at this time Review of Systems All other systems reviewed negative except as stated in HPI Mental Status Examination Appearance: Appropriate Consciousness: Alert Orientation: x4 Motor Activity: Normal gait Speech: Pressured, Rapid Language: Adequate Fund of Knowledge: Adequate Attention and Concentration: Easily distracted Memory: Unremarkable Mood: Sad Affect: Other (Decreased range and intensity) Thought Process & Associations: Intact, Disorganized (Improved) Thought Content: Hallucinations (Vague) Hallucination Type: Auditory (Vague), Visual (Vague) Delusion Type: Paranoid (Diminished) Suicidal Ideation: Yes (States she will probably take the suicide pill) Suicidal Plan: Yes Suicidal Intention: No Homicidal Ideation: No Homicidal Plan: No Homicidal Intention: No Insight: Fair Judgment: Adequate Assessment and Plan - Assessment (1) Schizoaffective disorder, depressive type Code(s): F25.1 - Schizoaffective disorder, depressive type Status: Acute - Plan Plan: Patient remains depressed but somewhat calmer more focused she medication adjustment above Justification for Continued Inpatient Stay: At this time patient would decompensate a place to a lower level of care Discharge Planning: Probable return home Request Healthcare Surrogate/Guardian Advocate?: No
[2018-02-22] MEDS: Montelukast 10 MG Tablet PO SCH (21:26)
[2018-02-22] MEDS: Mirtazapine 15 MG Tablet PO SCH (21:26)
[2018-02-23] MEDS: Acetaminophen 325 MG Tablet PO PRN ×3 (06:18→19:01)
[2018-02-23] MEDS: guaiFENesin 600 MG ER Tablet PO SCH ×2 (08:38→20:28)
--- NOTE | 2018-02-23 13:45 | P.PNPSY ---
Subjective Remarks: Pt seen and discussed with staff. Chart reviewed. She was admitted for depression and SI. She has been intrusive and irritable with staff. She had to be redirected from banging on windows of nursing station. She has been refusing respiratory breathing treatments and is uncooperative with care. No SI/ HI. Mental Status Examination Appearance: Appropriate Consciousness: Alert Orientation: x4 Motor Activity: Normal gait Speech: Pressured, Rapid Language: Adequate Fund of Knowledge: Adequate Attention and Concentration: Easily distracted Memory: Unremarkable Mood: Sad Affect: Sad, Other Thought Process & Associations: Disorganized Thought Content: Hallucinations (Vague) Hallucination Type: Auditory Delusion Type: Paranoid (Diminished) Suicidal Ideation: Yes (States she will probably take the suicide pill) Suicidal Plan: Yes Suicidal Intention: No Homicidal Ideation: No Homicidal Plan: No Homicidal Intention: No Insight: Fair Judgment: Adequate Assessment and Plan - Assessment (1) Schizoaffective disorder, depressive type Code(s): F25.1 - Schizoaffective disorder, depressive type Status: Acute - Plan Plan: Continue current tx plan Justification for Continued Inpatient Stay: impairments in social functioning Request Healthcare Surrogate/Guardian Advocate?: No
[2018-02-23] MEDS: Mirtazapine 15 MG Tablet PO SCH (20:27)
[2018-02-23] MEDS: Montelukast 10 MG Tablet PO SCH (20:28)
[2018-02-24 05:56] VITALS: RESP 16
[2018-02-24] MEDS: guaiFENesin 600 MG ER Tablet PO SCH ×2 (08:23→20:19)
[2018-02-24] MEDS: Acetaminophen 325 MG Tablet PO PRN (08:54)
--- NOTE | 2018-02-24 13:24 | P.PNPSY ---
Subjective Remarks: Pt seen and discussed with staff. She has been sleeping most of the day. She was compliant with medications and did ADLs today. She yelled at peer during lunch and accused them of wanting her food. Mental Status Examination Appearance: Appropriate Consciousness: Alert Orientation: x4 Motor Activity: Normal gait Speech: Pressured, Rapid Language: Adequate Fund of Knowledge: Adequate Attention and Concentration: Easily distracted Memory: Unremarkable Mood: Sad Affect: Sad, Other Thought Process & Associations: Disorganized Thought Content: Hallucinations (less internally stimulated) Hallucination Type: Auditory Delusion Type: Paranoid (decreased) Suicidal Ideation: Yes (states she doesn't see the point) Suicidal Plan: Yes Suicidal Intention: No Homicidal Ideation: No Homicidal Plan: No Homicidal Intention: No Insight: Fair Judgment: Adequate Assessment and Plan - Assessment (1) Schizoaffective disorder, depressive type Code(s): F25.1 - Schizoaffective disorder, depressive type Status: Acute - Plan Plan: Continue current tx plan Justification for Continued Inpatient Stay: risk of decompensation Request Healthcare Surrogate/Guardian Advocate?: No
[2018-02-24] MEDS: Montelukast 10 MG Tablet PO SCH (20:19)
[2018-02-24] MEDS: Mirtazapine 15 MG Tablet PO SCH (20:19)
[2018-02-25 05:48] VITALS: BP 132/70; PULSE 64; TEMP 97.7; O2SAT 95
[2018-02-25] MEDS: guaiFENesin 600 MG ER Tablet PO SCH (09:03)
[2018-02-25] MEDS: Acetaminophen 325 MG Tablet PO PRN (09:19)
--- NOTE | 2018-02-25 10:26 | P.DSPSY ---
Psychiatry Discharge Summary Inpatient Psychiatric care?: Yes Advance Directives: No Mental Health Advance Directive: No Health Care Proxy: No - Admission Admission Date: February 20, 2018 15:43 - Admission Diagnosis (1) Schizoaffective disorder, depressive type Code(s): F25.1 - Schizoaffective disorder, depressive type Brief History: Patient is a 67-year-old white female well known to us from multiple prior admissions comes here voluntarily complaining of depression with suicidality. Patient seen screen in the ED urine toxicology negative blood alcohol level negative. At the present time patient laying in her bed on 2600 nurse Kendra present throughout session. Patient did recognize me from prior contacts. She is angry irritable demanding and depressed. States that she is homeless but she cannot live with her family. That she lost some disability income that she has no job and she is 67 years old. However upon review of prior admissions patient has been offered services that she has declined to continue or participate in. She states she is not seeing a psychiatrist at the present time is on no psychotropic medication. She is vague about suicidality though she states that she would take the suicide pill if offered. She states she would use alcohol if she could afford it. She states the only income she gets is from "begging" and and ambulating. At this time she is focused mainly on the fact that she appears to have a URI and that she has received no treatment for that. Though she has been medically cleared through the ED patient has been reluctant to accept services from us. In any event at the present time with her claiming suicidal intent with the suicide pill. She still meets criteria for further inpatient psychiatric hospitalization assessment and observation. We will keep her on a voluntary basis at this time. We will have the hospitalist consult will us. In further observe she is been shown to be poorly compliant with medication or outpatient follow-ups. Tobacco Use In Past 30 Days: Yes How Often Do You Have a Drink Containing Alcohol: 2 to 4 times a month Hospital Course: Patient's hospital course was uneventful she showed some isolation without significant interaction with the community of the [facility]. She was no behavioral problem. She was compliant with her medications. She denies suicidality homicidality voice or visions. She is focused on the fact that she is homeless. Has no significant income. However she was also talked with her daughter was willing to come and pick her up and his sister. The stomach feel patient reached maximum benefit of this hospitalization thus she will be discharged today with Rx 1 month to follow-up [facility] outpatient medication management services. - Discharge Discharge Date: 02/25/18 - Discharge Diagnosis (1) Schizoaffective disorder, depressive type Code(s): F25.1 - Schizoaffective disorder, depressive type Status: Acute Discharge Disposition: Home - Discharge Instructions Discharge Diet: Regular Diet Activities You Can Perform: Regular- No Restrictions - Discharge Time > 30 minutes Mental Status Examination Appearance: Appropriate Consciousness: Alert Orientation: x4 Motor Activity: Normal gait Speech: Pressured, Rapid Language: Adequate Fund of Knowledge: Adequate Attention and Concentration: Easily distracted Memory: Unremarkable Mood: Sad Affect: Sad, Other Thought Process & Associations: Disorganized Thought Content: Hallucinations (less internally stimulated) Hallucination Type: Auditory Delusion Type: Paranoid (decreased) Suicidal Ideation: Yes (states she doesn't see the point) Suicidal Plan: Yes Suicidal Intention: No Homicidal Ideation: No Homicidal Plan: No Homicidal Intention: No Insight: Fair Judgment: Adequate Discharge/Advance Care Plan - Results Vital Signs: Last Vital Signs Temp 97.7 F 02/25/18 05:45 Pulse 64 02/25/18 05:45 Resp 16 02/25/18 05:45 BP 132/70 02/25/18 05:45 Pulse Ox 95 02/25/18 05:45 Lab Results: Laboratory Results TSH 1.600 uIU/mL (0.358-3.740) 02/20/18 12:55 Summary of Procedures: None done Imaging: ITS Impressions Chest X-Ray 02/21/18 00:00 CONCLUSION: No acute cardiopulmonary findings identified. Pending Results: None - Medications Number of antipsychotic medications at discharge: 0 - Discharge Care Plan Goals to Promote Your Health: * To prevent worsening of your condition and complications * To maintain your health at the optimal level Directions to Meet Your Goals: Take your medications as prescribed Follow your dietary instruction Follow activity as directed Keep your appointments as scheduled Take your immunizations and boosters as scheduled If your symptoms worsen call your PCP, if no PCP go to Urgent Care Center or Emergency Room For 29/01 questions related to your inpatient stay or results of tests pending at discharge, please contact Dr. Elan Navarro MD at Smoking is Dangerous to Your Health. Avoid second hand smoking
== END 2018-02-25 13:00 | disposition home or self-care (01) ==
LOC: NEPD 11:20 → NEDA 15:43 → H260 16:18
PROVIDERS: ADMIT Psychiatry & Neurology Psychiatry; ATTEND Psychiatry & Neurology Psychiatry

== ENCOUNTER 2018-02-28 10:49 | Inpatient (IN) ==
--- NOTE | 2018-02-28 12:21 | ED ---
HPI General Chief Complaint: Psychiatric Symptoms Stated Complaint: Psych eval / [place] Time Seen by Provider: 02/28/18 14:48 Source: patient and police Mode of arrival: other (police) History of Present Illness HPI Narrative: Patient is a 67-year-old female presenting to the emergency department under [place] for psychiatric evaluation. Patient states that she walked into traffic on [address] because she felt overwhelmed and suicidal. She states that she was trying to find a clinic that she was supposed to go to for a follow-up but when she realized it was several blocks away she decided to walk into traffic. After she walked into traffic she then walked back to her case packer and sealer's office where she reported feeling suicidal and they called the police. Patient states she has a history of depression, she has felt suicidal for some time. She has no physical complaints at this time. She appears focused on her Social Security card as well as Medicare documents that she had to get filled out. MD complaint: suicidal ideation and feels depressed Onset (ago): unknown Duration: constant History of same: Yes Relieving factors: none Context: significant life stressor Associated psychiatric symptoms: depression and suicidal ideation Associated symptoms: denies other symptoms Treatments prior to arrival: none If self harm: admits thoughts of self harm and has acted on plan (per patient she walked into traffice but this was not witnessed by law enforcement or bystanders. ) Details of plan: As above. Related Data Previous Rx's Medication Instructions Recorded albuterol sulfate [Ventolin HFA] 2 puff INH Q4H PRN #1 g 02/25/18 guaifenesin [Mucinex] 600 mg PO BID #60 tab 02/25/18 mirtazapine 15 mg PO HS #30 tab 02/25/18 montelukast 10 mg PO HS #30 tab 02/25/18 Allergies Allergy/AdvReac Type Severity Reaction Status Date / Time haloperidol Allergy Severe CHEST PAIN Verified 02/28/18 11:37 penicillin G Allergy Severe SWELLING Verified 02/28/18 11:37 Review of Systems ROS: all other systems reviewed are negative [facility] Medical History Medical History Benign tumor of breast (Chronic) Irregular heart beat (Chronic) Bipolar 1 disorder (Chronic) Schizophrenia (Chronic) Surgical History Surgical History History of oophorectomy, unilateral (Resolved) History of appendectomy (Resolved) Family History Family History Mother Emphysema of lung Father Asthma Other Parents Social History Social History Substance History: No History of Abuse Second Hand Smoke Exposure: No Smoking Status: Current every day smoker Tobacco Type: Cigarettes How Often Do You Have a Drink Containing Alcohol: 2 to 4 times a month Recent Travel in [facility] within the Last 8 Weeks: No Recent Out of Country Travel within the Last 8 Weeks: No Immunization History Tetanus Immunization: Unable to Assess Hx Influenza Vaccine This Season: Unable to Assess Exam Narrative Exam Narrative: GENERAL: Well-developed, well-nourished, well-kept female. Presenting in no acute distress. SKIN: Focused skin assessment warm/dry. Varicosities noted to bilateral lower extremities. HEAD: Atraumatic. Normocephalic. EYES: Pupils equal and round. No scleral icterus. No injection or drainage. ENT: No nasal bleeding or discharge. Mucous membranes pink and moist. NECK: Trachea midline. No JVD. CARDIOVASCULAR: Regular rate and rhythm. No murmur appreciated. RESPIRATORY: No accessory muscle use. Breath sounds equal bilaterally. Scattered expiratory wheezes. GASTROINTESTINAL: Abdomen soft, non-tender, nondistended. Hepatic and splenic margins not palpable. MUSCULOSKELETAL: No obvious deformities. No clubbing. No cyanosis. No edema. NEUROLOGICAL: Awake and alert. No obvious cranial nerve deficits. Motor grossly within normal limits. Normal speech. PSYCHIATRIC: Depressed mood and affect; insight and judgment normal. Course Initial Documented Vital Signs Temperature 98.6 F 02/28/18 11:56 Pulse Rate 71 02/28/18 11:56 Respiratory Rate 16 02/28/18 11:56 Blood Pressure 135/72 02/28/18 11:56 Pulse Oximetry 98 02/28/18 11:56 Last Documented Vital Signs Temperature 97.6 F 03/02/18 05:52 Pulse Rate 56 L 03/02/18 05:52 Respiratory Rate 16 03/02/18 05:52 Blood Pressure 116/59 L 03/02/18 05:52 Pulse Oximetry 94 L 03/02/18 05:52 Medical Decision Making MDM Narrative Medical decision making narrative: Patient is a well-appearing 67-year-old female presenting under [facility] for psychiatric evaluation. Patient's vital signs are stable, medical records reviewed. Mental health screening discussed with the patient. Psychiatric screen ordered. Labs reviewed, no acute findings identified. Patient is medically cleared. Oral fluid intake encouraged. Medical Screen Exam Complete: Yes Emergency Medical Condition: Yes Differential Diagnosis Differential Diagnosis: Mood disorder versus psychosis versus metabolic abnormality versus UTI versus schizophrenia versus noncompliance versus other Medical Records Medical records reviewed: Yes I reviewed the patient's medical records. Lab Data Lab results reviewed: Yes I reviewed the patient's lab results. Result diagrams: 02/28/18 12:47 03/01/18 08:49 Lab Results 02/28/18 02/28/18 02/28/18 Range/Units 12:15 12:15 12:47 WBC 7.3 (4.0-11.0) th/mm3 RBC 4.54 (4.00-5.30) mil/mm3 Hgb 13.9 (11.6-15.3) gm/dL Hct 42.3 (35.0-46.0) % MCV 93.2 (80.0-100.0) fL MCH 30.6 (27.0-34.0) pg MCHC 32.8 (32.0-36.0) % RDW 15.3 (11.6-17.2) % Plt Count 277 (150-450) th/mm3 MPV 8.0 (7.0-11.0) fL Neut % (Auto) 56.3 (16.0-70.0) % Lymph % (Auto) 35.2 (9.0-44.0) % [place] % (Auto) 6.2 (0.0-8.0) % Eos % (Auto) 1.7 (0.0-4.0) % Baso % (Auto) 0.6 (0.0-2.0) % Neut # (Auto) 4.1 (1.8-7.7) th/mm3 Lymph # (Auto) 2.6 (1.0-4.8) th/mm3 Crook # (Auto) 0.5 (0.0-0.9) th/mm3 Eos # (Auto) 0.1 (0.0-0.4) th/mm3 Baso # (Auto) 0.0 (0.0-0.2) th/mm3 WBC Differential . Differential Comment Auto diff final Sodium (136-145) meq/L Potassium (3.5-5.1) meq/L Chloride (98-107) meq/L Carbon Dioxide (21.0-32.0) meq/L Anion Gap (5-15) meq/L BUN (7-18) mg/dL Creatinine (0.50-1.00) mg/dL Estimated GFR (>89) mL/min Random Glucose (74-106) mg/dL Hemoglobin A1c (4.3-6.0) % Calcium (8.5-10.1) mg/dL Total Bilirubin (0.2-1.0) mg/dL AST (15-37) U/L ALT (10-53) U/L Alkaline Phosphatase (45-117) U/L Total Protein (6.4-8.2) g/dL Albumin (3.4-5.0) g/dL Triglycerides (42-150) mg/dL Cholesterol (120-200) mg/dL LDL Cholesterol, Calc (0-99) mg/dL HDL Cholesterol (40.0-60.0) mg/dL Cholesterol/HDL Ratio Ratio TSH (0.358-3.740) uIU/mL Urine Color Straw (Yellw/Straw) Urine Clarity Clear (Clear) Urine pH 5.0 (5.0-8.5) Ur Specific [place] 1.004 (1.002-1.035) Urine Protein Negative (Neg-Trace) mg/dL Urine Glucose (UA) Negative (Negative) mg/dL Urine Ketones Negative (Negative) mg/dL Urine Occult Blood Small H (Negative) Urine Nitrate Negative (Negative) Urine Bilirubin Negative (Negative) Urine Urobilinogen Less than 2 (Less than 2) mg/dL Ur Leukocyte Esterase Small H (Negative) Urine RBC 1 (0-3) /hpf Urine WBC 2 (0-5) /hpf Ur Squamous Epith Cells <1 (0-5) /hpf Micro UA Comment Culture not ind Ur Microscopic Review Not Reportable Urine Culture Comments Culture not ind Urine Opiates Screen Neg (Neg) Ur Barbiturates Screen Neg (Neg) Ur Amphetamines Screen Neg (Neg) U Benzodiazepines Scrn Neg (Neg) Urine Cocaine Screen Neg (Neg) U Cannabinoids Screen Neg (Neg) Serum Alcohol (0-5) mg/dL 02/28/18 03/01/18 03/01/18 Range/Units 12:47 08:49 08:49 WBC (4.0-11.0) th/mm3 RBC (4.00-5.30) mil/mm3 Hgb (11.6-15.3) gm/dL Hct (35.0-46.0) % MCV (80.0-100.0) fL MCH (27.0-34.0) pg MCHC (32.0-36.0) % RDW (11.6-17.2) % Plt Count (150-450) th/mm3 MPV (7.0-11.0) fL Neut % (Auto) (16.0-70.0) % Lymph % (Auto) (9.0-44.0) % Crook % (Auto) (0.0-8.0) % Eos % (Auto) (0.0-4.0) % Baso % (Auto) (0.0-2.0) % Neut # (Auto) (1.8-7.7) th/mm3 Lymph # (Auto) (1.0-4.8) th/mm3 Crook # (Auto) (0.0-0.9) th/mm3 Eos # (Auto) (0.0-0.4) th/mm3 Baso # (Auto) (0.0-0.2) th/mm3 WBC Differential Differential Comment Sodium 138 141 (136-145) meq/L Potassium 5.0 5.0 (3.5-5.1) meq/L Chloride 105 107 (98-107) meq/L Carbon Dioxide 27.3 24.2 (21.0-32.0) meq/L Anion Gap 6 10 (5-15) meq/L BUN 24 H 26 H (7-18) mg/dL Creatinine 1.01 H 0.81 (0.50-1.00) mg/dL Estimated GFR 55 L 71 L (>89) mL/min Random Glucose 193 H 101 (74-106) mg/dL Hemoglobin A1c 6.0 (4.3-6.0) % Calcium 8.8 8.9 (8.5-10.1) mg/dL Total Bilirubin 0.3 (0.2-1.0) mg/dL AST 19 (15-37) U/L ALT 20 (10-53) U/L Alkaline Phosphatase 96 (45-117) U/L Total Protein 7.5 (6.4-8.2) g/dL Albumin 3.8 (3.4-5.0) g/dL Triglycerides 134 (42-150) mg/dL Cholesterol 152 (120-200) mg/dL LDL Cholesterol, Calc 62 (0-99) mg/dL HDL Cholesterol 63.0 H (40.0-60.0) mg/dL Cholesterol/HDL Ratio 2.41 Ratio TSH 1.330 (0.358-3.740) uIU/mL Urine Color (Yellw/Straw) Urine Clarity (Clear) Urine pH (5.0-8.5) Ur Specific [place] (1.002-1.035) Urine Protein (Neg-Trace) mg/dL Urine Glucose (UA) (Negative) mg/dL Urine Ketones (Negative) mg/dL Urine Occult Blood (Negative) Urine Nitrate (Negative) Urine Bilirubin (Negative) Urine Urobilinogen (Less than 2) mg/dL Ur Leukocyte Esterase (Negative) Urine RBC (0-3) /hpf Urine WBC (0-5) /hpf Ur Squamous Epith Cells (0-5) /hpf Micro UA Comment Ur Microscopic Review Urine Culture Comments Urine Opiates Screen (Neg) Ur Barbiturates Screen (Neg) Ur Amphetamines Screen (Neg) U Benzodiazepines Scrn (Neg) Urine Cocaine Screen (Neg) U Cannabinoids Screen (Neg) Serum Alcohol Less than 3 (0-5) mg/dL Discharge Plan Discharge Disposition Patient Disposition: 30 Still Patient Discharge Condition Condition: Stable Discharge Details Diagnosis: Medical clearance for psychiatric admission Physicians Team ED Provider: Chichi Zavala ED Midlevel Provider: Carri Moralez Primary Care Provider: UNKNOWN, Attending Provider: Jaleel Willson Discharge Interventions Interventions: ED Discharge Assessment Last Done: 02/28/18 16:06 Status ED Status: Left Department Discharge Information Discharge Date/Time: 02/28/18 16:16
[2018-02-28 13:12] LABS: Baso % (Auto) 0.6 % (0.0-2.0); Eos # (Auto) 0.1 th/mm3 (0.0-0.4); Eos % (Auto) 1.7 % (0.0-4.0); Hematocrit 42.3 % (35.0-46.0); Hemoglobin 13.9 gm/dL (11.6-15.3); Lymph # (Auto) 2.6 th/mm3 (1.0-4.8); Lymph % (Auto) 35.2 % (9.0-44.0); Mean Corpuscular HGB Conc 32.8 % (32.0-36.0); Mean Corpuscular Hemoglobin 30.6 pg (27.0-34.0); Mean Corpuscular Volume 93.2 fL (80.0-100.0); Mono # (Auto) 0.5 th/mm3 (0.0-0.9); Mono % (Auto) 6.2 % (0.0-8.0); Neut # (Auto) 4.1 th/mm3 (1.8-7.7); Neut % (Auto) 56.3 % (16.0-70.0); Platelet Count 277 th/mm3 (150-450); Red Blood Count 4.54 mil/mm3 (4.00-5.30); Red Cell Distribution Width 15.3 % (11.6-17.2); White Blood Count 7.3 th/mm3 (4.0-11.0)
[2018-02-28 13:28] LABS: Alanine Aminotransferase 20 U/L (10-53); Albumin 3.8 g/dL (3.4-5.0); Anion Gap 6 meq/L (5-15); Aspartate Aminotransferase 19 U/L (15-37); Blood Urea Nitrogen 24 mg/dL (7-18); Calcium 8.8 mg/dL (8.5-10.1); Carbon Dioxide 27.3 meq/L (21.0-32.0); Chloride 105 meq/L (98-107); Glomerular Filtration Rate 55 mL/min (>89); Glucose,Random 193 mg/dL (74-106); Sodium 138 meq/L (136-145)
[2018-02-28 13:38] LABS: Alkaline Phosphatase 96 U/L (45-117); Total Protein 7.5 g/dL (6.4-8.2)
[2018-02-28 14:37] LABS: Amphetamine Screen,Urine Neg (Neg); Barbiturate Screen,Urine Neg (Neg); Cannabinoid Screen,Urine Neg (Neg); Cocaine Screen,Urine Neg (Neg); Opiate Screen,Urine Neg (Neg)
[2018-02-28 15:11] LABS: Bilirubin,Urine Negative (Negative); Clarity,Urine Clear (Clear); Color,Urine Straw (Yellw/Straw); Glucose,Urine (UA) Negative (Negative); Leukocyte Esterase,Urine Small (Negative); Nitrite,Urine Negative (Negative); Specific Gravity,Urine 1.004 (1.002-1.035); Squamous Epithelial Cell,Urine <1 /hpf (0-5)
[2018-02-28] MEDS ORDERED: LORazepam 1 MG Tablet PO ONE (15:15)
[2018-02-28] MEDS ORDERED: OLANZapine 10 MG Tablet PO ONE (15:15)
[2018-02-28] MEDS ORDERED: Aluminum/Magnesium/Simethacone Susp 30 ML UDC PO PRN (15:26)
--- NOTE | 2018-02-28 18:25 | ED ---
HPI - Psych - General Source: patient, police Mode of arrival: other (police) Limitations: altered mental status - History of Present Illness MD complaint: suicidal ideation Onset (ago): day(s) Duration: constant History of same: Yes Relieving factors: other (Jail) Exacerbating factors: other (Homelessness) Context: not taking psychiatric medications, significant life stressor Associated symptoms: denies other symptoms Treatments prior to arrival: none - General Chief Complaint: Psychiatric Symptoms Stated Complaint: Psych eval / [place] Time Seen by Provider: 02/28/18 14:48 - History of Present Illness HPI Narrative: This is a 67-year-old , homeless, female who presents to this facility under [place] act for her stating to the police that she wanted to walk into traffic. Patient was discharged from this facility 2 days ago after an inpatient admission. Reviewed electronic medical record, labs, discussed case with staff. Patient was evaluated in her room J107. She was found awake, alert, and oriented 4. Initially, her speech was clear, logical, organized, of normal hood and volume. Her thought process was goal-directed somewhat tangential. She endorses suicidal ideation in the context of her homelessness. Denies being homicidal or experiencing auditory or visual hallucinations. She is fixated on getting her Social Security card so that she can get back on her disability. Probably through the interview when I mentioned her previous admissions the patient became extremely volatile and began yelling. She claims that she had not been here for years prior to her most recent admission a week ago. At that point nothing I said or anyone else did was able to redirect her. She continued to yell and rant even as we left the room. Her speech became extremely rapid and pressured and she appeared to be internally stimulated. She was offered and agreed to take an ETO of 10 mg p.o. Zyprexa and 1 mg p.o. Ativan. (Tara Marte) - Related Data Previous Rx's Medication Instructions Recorded albuterol sulfate [Ventolin HFA] 2 puff INH Q4H PRN #1 g 02/25/18 guaifenesin [Mucinex] 600 mg PO BID #60 tab 02/25/18 mirtazapine 15 mg PO HS #30 tab 02/25/18 montelukast 10 mg PO HS #30 tab 08/20/18 Allergies Allergy/AdvReac Type Severity Reaction Status Date / Time haloperidol Allergy Severe CHEST PAIN Verified 02/28/18 11:37 penicillin G Allergy Severe SWELLING Verified 02/28/18 11:37 Review of Systems All other systems reviewed negative except as stated in HPI [facility] - History History Provided By: Patient - Medical History Medical History: Medical History (Last Reviewed 02/28/18 @ 18:18 by ALYCIA Birch) Benign tumor of breast (Chronic) Irregular heart beat (Chronic) Bipolar 1 disorder (Chronic) Schizophrenia (Chronic) - Surgical History Surgical History: Surgical History (Last Reviewed 02/28/18 @ 18:18 by ALYCIA Birch) History of oophorectomy, unilateral (Resolved) History of appendectomy (Resolved) - Family History Family History: Family History (Last Reviewed 02/28/18 @ 12:20 by ALYCIA Reyes) Mother Emphysema of lung Father Asthma Other Parents - Tobacco History Second Hand Smoke Exposure: No Tobacco Use In Past 30 Days: Yes Smoking Status: Current every day smoker Tobacco Type: Cigarettes - Alcohol History How Often Do You Have a Drink Containing Alcohol: 2 to 4 times a month - Substance Use History Substance History: No History of Abuse - Travel History Recent Travel in the USA Within the Last 8 Weeks: No Recent Travel Out of the Country Within the Last 8 Weeks: No - Immunization History Tetanus Immunization: Unable to Assess Hx Influenza Vaccine This Season: Unable to Assess Psychiatric History - Psychiatric History Psychiatric Treatment History: History of Psychiatric Treatment, History of Hospitalization in a Psychiatric Facility, History of Community Mental Health Treatment History of Inpatient Treatment: Yes Firearms in Home: No - Psychiatric History Discharge approximately 3 days ago (Tara Marte) Physical Exam - General Limitations: altered mental status General appearance: alert - Neurological Exam Neurological exam: Present: alert, oriented X3 - Psychiatric Psychiatric exam: Present: agitated, anxious, manic, suicidal ideation Mental Status Examination Appearance: Disheveled Consciousness: Alert, Vigilant Orientation: x4 Motor Activity: Normal gait Speech: Pressured, Rapid Language: Adequate Fund of Knowledge: Inadequate Attention and Concentration: Inadequate Memory: Unremarkable Mood: Angry, Irritable, Manic Affect: Irritable Thought Process & Associations: Linear, Tangential Thought Content: Preoccupations Hallucination Type: None Delusion Type: Paranoid (Patient stated that she felt somebody had stolen her identity because she had "not been at this hospital for years prior to last week ".) Suicidal Ideation: Yes Suicidal Plan: Yes (Walk into traffic) Suicidal Intention: Yes Homicidal Ideation: No Homicidal Plan: No Homicidal Intention: No Insight: Poor Judgment: Impulsive Initial Documented Vital Signs Temperature 98.6 F 02/28/18 11:56 Pulse Rate 71 02/28/18 11:56 Respiratory Rate 16 02/28/18 11:56 Blood Pressure 135/72 02/28/18 11:56 Pulse Oximetry 98 02/28/18 11:56 Last Documented Vital Signs Temperature 98.6 F 02/28/18 11:56 Pulse Rate 71 02/28/18 11:56 Respiratory Rate 16 02/28/18 11:56 Blood Pressure 135/72 02/28/18 11:56 Pulse Oximetry 98 02/28/18 11:56 MDM - Psych - Diagnosis (1) Bipolar 1 disorder Status: Chronic - Lab Data Result diagrams: 02/28/18 12:47 02/28/18 12:47 - MDM Narrative Medical decision making narrative: Patient's endorsement of suicide and her vehemence as to the method, combined with her apparent psychiatric destabilization and daniel cause her to be a danger to herself. She will be admitted to a locked inpatient psychiatric unit under the Mckeon act for further evaluation and treatment. (Tara Marte) - Lab Data Lab Results 02/28/18 02/28/18 02/28/18 Range/Units 12:15 12:15 12:47 WBC 7.3 (4.0-11.0) th/mm3 RBC 4.54 (4.00-5.30) mil/mm3 Hgb 13.9 (11.6-15.3) gm/dL Hct 42.3 (35.0-46.0) % MCV 93.2 (80.0-100.0) fL MCH 30.6 (27.0-34.0) pg MCHC 32.8 (32.0-36.0) % RDW 15.3 (11.6-17.2) % Plt Count 277 (150-450) th/mm3 MPV 8.0 (7.0-11.0) fL Neut % (Auto) 56.3 (16.0-70.0) % Lymph % (Auto) 35.2 (9.0-44.0) % [place] % (Auto) 6.2 (0.0-8.0) % Eos % (Auto) 1.7 (0.0-4.0) % Baso % (Auto) 0.6 (0.0-2.0) % Neut # (Auto) 4.1 (1.8-7.7) th/mm3 Lymph # (Auto) 2.6 (1.0-4.8) th/mm3 [place] # (Auto) 0.5 (0.0-0.9) th/mm3 Eos # (Auto) 0.1 (0.0-0.4) th/mm3 Baso # (Auto) 0.0 (0.0-0.2) th/mm3 WBC Differential . Differential Comment Auto diff final Sodium (136-145) meq/L Potassium (3.5-5.1) meq/L Chloride (98-107) meq/L Carbon Dioxide (21.0-32.0) meq/L Anion Gap (5-15) meq/L BUN (7-18) mg/dL Creatinine (0.50-1.00) mg/dL Estimated GFR (>89) mL/min Random Glucose (74-106) mg/dL Calcium (8.5-10.1) mg/dL Total Bilirubin (0.2-1.0) mg/dL AST (15-37) U/L ALT (10-53) U/L Alkaline Phosphatase (45-117) U/L Total Protein (6.4-8.2) g/dL Albumin (3.4-5.0) g/dL TSH (0.358-3.740) uIU/mL Urine Color Straw (Yellw/Straw) Urine Clarity Clear (Clear) Urine pH 5.0 (5.0-8.5) Ur Specific [place] 1.004 (1.002-1.035) Urine Protein Negative (Neg-Trace) mg/dL Urine Glucose (UA) Negative (Negative) mg/dL Urine Ketones Negative (Negative) mg/dL Urine Occult Blood Small H (Negative) Urine Nitrate Negative (Negative) Urine Bilirubin Negative (Negative) Urine Urobilinogen Less than 2 (Less than 2) mg/dL Ur Leukocyte Esterase Small H (Negative) Urine RBC 1 (0-3) /hpf Urine WBC 2 (0-5) /hpf Ur Squamous Epith Cells <1 (0-5) /hpf Micro UA Comment Culture not ind Ur Microscopic Review Not Reportable Urine Culture Comments Culture not ind Urine Opiates Screen Neg (Neg) Ur Barbiturates Screen Neg (Neg) Ur Amphetamines Screen Neg (Neg) U Benzodiazepines Scrn Neg (Neg) Urine Cocaine Screen Neg (Neg) U Cannabinoids Screen Neg (Neg) Serum Alcohol (0-5) mg/dL 02/28/18 Range/Units 12:47 WBC (4.0-11.0) th/mm3 RBC (4.00-5.30) mil/mm3 Hgb (11.6-15.3) gm/dL Hct (35.0-46.0) % MCV (80.0-100.0) fL MCH (27.0-34.0) pg MCHC (32.0-36.0) % RDW (11.6-17.2) % Plt Count (150-450) th/mm3 MPV (7.0-11.0) fL Neut % (Auto) (16.0-70.0) % Lymph % (Auto) (9.0-44.0) % [place] % (Auto) (0.0-8.0) % Eos % (Auto) (0.0-4.0) % Baso % (Auto) (0.0-2.0) % Neut # (Auto) (1.8-7.7) th/mm3 Lymph # (Auto) (1.0-4.8) th/mm3 [place] # (Auto) (0.0-0.9) th/mm3 Eos # (Auto) (0.0-0.4) th/mm3 Baso # (Auto) (0.0-0.2) th/mm3 WBC Differential Differential Comment Sodium 138 (136-145) meq/L Potassium 5.0 (3.5-5.1) meq/L Chloride 105 (98-107) meq/L Carbon Dioxide 27.3 (21.0-32.0) meq/L Anion Gap 6 (5-15) meq/L BUN 24 H (7-18) mg/dL Creatinine 1.01 H (0.50-1.00) mg/dL Estimated GFR 55 L (>89) mL/min Random Glucose 193 H (74-106) mg/dL Calcium 8.8 (8.5-10.1) mg/dL Total Bilirubin 0.3 (0.2-1.0) mg/dL AST 19 (15-37) U/L ALT 20 (10-53) U/L Alkaline Phosphatase 96 (45-117) U/L Total Protein 7.5 (6.4-8.2) g/dL Albumin 3.8 (3.4-5.0) g/dL TSH 1.330 (0.358-3.740) uIU/mL Urine Color (Yellw/Straw) Urine Clarity (Clear) Urine pH (5.0-8.5) Ur Specific [place] (1.002-1.035) Urine Protein (Neg-Trace) mg/dL Urine Glucose (UA) (Negative) mg/dL Urine Ketones (Negative) mg/dL Urine Occult Blood (Negative) Urine Nitrate (Negative) Urine Bilirubin (Negative) Urine Urobilinogen (Less than 2) mg/dL Ur Leukocyte Esterase (Negative) Urine RBC (0-3) /hpf Urine WBC (0-5) /hpf Ur Squamous Epith Cells (0-5) /hpf Micro UA Comment Ur Microscopic Review Urine Culture Comments Urine Opiates Screen (Neg) Ur Barbiturates Screen (Neg) Ur Amphetamines Screen (Neg) U Benzodiazepines Scrn (Neg) Urine Cocaine Screen (Neg) U Cannabinoids Screen (Neg) Serum Alcohol Less than 3 (0-5) mg/dL
[2018-02-28] MEDS: LORazepam 1 MG Tablet PO PRN (23:33)
[2018-03-01 09:49] LABS: Calcium 8.9 mg/dL (8.5-10.1); Carbon Dioxide 24.2 meq/L (21.0-32.0)
[2018-03-01 09:53] LABS: Chol/HDL Ratio 2.41 Ratio
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
[2018-03-01] MEDS: LORazepam 1 MG Tablet PO PRN (12:30)
[2018-03-01] MEDS: Acetaminophen 325 MG Tablet PO PRN (12:30)
[2018-03-01] MEDS ORDERED: Melatonin 5 MG Tablet PO PRN (14:45)
[2018-03-01] MEDS ORDERED: Benztropine Inj 2 MG/2 ML Ampul IM PRN (15:14)
[2018-03-01] MEDS ORDERED: guaiFENesin 600 MG ER Tablet PO SCH (21:00)
[2018-03-01] MEDS: Montelukast 10 MG Tablet PO SCH (23:06)
[2018-03-01] MEDS: risperiDONE 0.5 MG ODT PO SCH (23:07)
[2018-03-01] MEDS: Docusate Sodium 100 MG Capsule PO SCH (23:07)
[2018-03-02] MEDS: Docusate Sodium 100 MG Capsule PO SCH ×2 (09:12→20:38)
[2018-03-02] MEDS: Acetaminophen 325 MG Tablet PO PRN ×3 (09:12→18:10)
[2018-03-02] MEDS: risperiDONE 0.5 MG ODT PO SCH ×2 (09:12→20:38)
--- NOTE | 2018-03-02 12:49 | ECG ---
Date Performed: 03/01/2018 Time Performed: 16:03:16 PTAGE: 67 years EKG: Sinus rhythm NORMAL ECG PREVIOUS TRACING : 02/09/2018 15.37 Since the previous tracing, no significant change noted DOCTOR: Frandy Hernandez Interpretating Date/Time 03/02/2018 12:46:07
--- NOTE | 2018-03-02 13:12 | P.PNPSY ---
Subjective Chief Complaint: Manipulative threats of harm to self Remarks: Patient was seen and case discussed with nursing. Per nursing there is a high suspicion of malingering. Patient is minimally engaged during the interview is complaining of wheezing. She claims she has suicidal ideation who killed herself outside the hospital if she does not get her check. She is seclusive to self and is complaining of nonspecific auditory hallucinations Mental Status Examination Appearance: Appropriate Consciousness: Alert Orientation: x4 Motor Activity: Normal gait Speech: Unremarkable Language: Adequate Fund of Knowledge: Inadequate Attention and Concentration: Adequate Memory: Unremarkable Mood: Irritable, Other (Mildly dysphoric) Affect: Blunt Thought Process & Associations: Intact Thought Content: Hallucinations, Delusional Hallucination Type: Auditory, Visual Delusion Type: Other ([place]) Suicidal Ideation: Yes (Manipulative) Suicidal Plan: Yes (Walk into traffic) Suicidal Intention: No (No reported urge to hurt self on inpatient unit) Homicidal Ideation: No Homicidal Plan: No Homicidal Intention: No Insight: Poor Judgment: Poor Assessment and Plan - Assessment (1) Schizophrenia Code(s): F20.9 - Schizophrenia, unspecified Status: Chronic (2) Malingering Code(s): Z76.5 - Malingerer [conscious simulation] Status: Acute - Plan Plan: Consult medicine for need for breathing treatments. Albuterol treatment ordered now Justification for Continued Inpatient Stay: Patient would decompensate in a less restrictive setting Request Healthcare Surrogate/Guardian Advocate?: No (1) Schizophrenia Qualifiers: Schizophrenia type: paranoid schizophrenia Qualified Code(s): F20.0 - Paranoid schizophrenia
--- NOTE | 2018-03-02 13:55 | P.CONIM ---
History of Present Illness Service: Hospitalist Consult date: 03/02/18 Requesting Physician: Joey Montez Reason for Consult: Wheezing Primary Care Provider: UNKNOWN Family Provider: No Primary Care Physician History of Present Illness: 67 year old female with history of schizophrenia and tobacco abuse admitted under [employer] for suicidal ideations. Hospitalist service consulted for wheezing and shortness of breath. The patient reports her symptoms started about two and a half weeks ago before she was admitted to [facility] from 02/20-02/25 for the same reason. During that hospitalization, she was treated with Mucinex and breathing treatments. She was discharged from the hospital where she continued to smoke. She states because she is homeless she has been having to walk a lot in the hot weather and that has contributed to her worsening shortness of breath. During the last several days she has had increased yellow sputum production, cough, and shortness of breath. She endorses subjective chills. She states her chest gets tight when she has difficulty breathing. Review of Systems All other systems reviewed negative except as stated [facility] - History History Provided By: Patient - Medical History Medical History: Medical History (Last Reviewed 02/28/18 @ 18:18 by ALYCIA Birch) Benign tumor of breast (Chronic) Irregular heart beat (Chronic) Bipolar 1 disorder (Chronic) Schizophrenia (Chronic) - Surgical History Surgical History: Surgical History (Last Reviewed 02/28/18 @ 18:18 by ALYCIA Birch) History of oophorectomy, unilateral (Resolved) History of appendectomy (Resolved) - Family History Family History: Family History (Last Reviewed 02/28/18 @ 12:20 by ALYCIA Reyes) Mother Emphysema of lung Father Asthma Other Parents - Tobacco History Second Hand Smoke Exposure: No Tobacco Use In Past 30 Days: Yes Smoking Status: Current every day smoker Tobacco Type: Cigarettes - Alcohol History How Often Do You Have a Drink Containing Alcohol: 2 to 4 times a month - Substance Use History Substance History: No History of Abuse - Travel History Recent Travel in the [place] Within the Last 8 Weeks: No Recent Travel Out of the Country Within the Last 8 Weeks: No - Immunization History Tetanus Immunization: Unable to Assess Hx Influenza Vaccine This Season: Unable to Assess Medications and Allergies Active Medications: Active Medications Acetaminophen (Tylenol) 650 mg PO Q4H PRN PRN Reason: Pain 1-5 or Temp >101F Last Admin: 03/02/18 13:26 Dose: 650 mg Al Hydrox/Mg Hydrox/Simethicone (Mag-Al Plus Susp Liq) 30 ml PO Q6H PRN PRN Reason: DYSPEPSIA Albuterol (Ventolin Hfa Inh) 2 puff INH Q4H PRN PRN Reason: SOB/ Wheezing Last Admin: 03/02/18 13:26 Dose: 2 puff Benztropine Mesylate (Cogentin Inj) 0.5 mg IM Q12HR PRN PRN Reason: EPS, unable to take PO Benztropine Mesylate (Cogentin) 0.5 mg PO Q12HR PRN PRN Reason: EXTRA PYRAMIDAL SYMPTOMS Bisacodyl (Dulcolax Ec) 10 mg PO DAILY PRN PRN Reason: CONSTIPATION Docusate Sodium (Colace) 100 mg PO BID [facility] Last Admin: 03/02/18 09:12 Dose: 100 mg Hydroxyzine HCl (Atarax) 25 mg PO Q6H PRN PRN Reason: ANXIETY Last Admin: 03/01/18 23:11 Dose: 25 mg Melatonin (Melatonin) 5 mg PO HS PRN PRN Reason: Insomnia Last Admin: 03/01/18 23:13 Dose: 5 mg Miscellaneous (Pill Splitter) 1 each OTHER UNSCH PRN PRN Reason: SEE LABEL COMMENTS Montelukast Sodium (Singulair) 10 mg PO HS [facility] Last Admin: 03/01/18 23:06 Dose: 10 mg Nicotine (Habitrol 21 Mg Patch.24 Hr) 1 patch T-DERMAL DAILY [facility] Last Admin: 03/02/18 09:13 Dose: 1 patch Patch Removal (Remove Old Patch) 1 each T-DERMAL HS [facility] Last Admin: 03/01/18 23:07 Dose: 1 each Risperidone (Risperdal M-Tab) 0.5 mg PO BID [facility] Last Admin: 03/02/18 09:12 Dose: 0.5 mg Allergies Allergy/AdvReac Type Severity Reaction Status Date / Time haloperidol Allergy Severe CHEST PAIN Verified 02/28/18 11:37 penicillin G Allergy Severe SWELLING Verified 02/28/18 11:37 Exam Vital signs: Vital Signs 03/01/18 16:20 03/02/18 05:52 Temperature 99.2 F 97.6 F Pulse Rate 69 56 L Respiratory Rate 18 16 Blood Pressure 135/66 116/59 L Pulse Oximetry 98 94 L Narrative: GENERAL: WN, WD female sitting up in bed in NAD. SKIN: Warm and dry. HEENT: AT/NC. Pupils equal and round. MMM. NECK: Supple no tender LAD or JVD. HEART: RRR no m/r/g. LUNGS: Breathing comfortably on room air. Diminished lung sounds with scattered wheezing. No crackles. ABDOMEN: +BS, soft, NT, ND. EXTREMITIES: No LE edema. NEURO: Awake and alert. Nonfocal. Results - Labs CBC & Chem 7: 02/28/18 12:47 03/01/18 08:49 Labs: Laboratory Results - last 24 hr 03/01/18 08:49 Hemoglobin A1c 6.0 Assessment and Plan - Assessment (1) COPD exacerbation Code(s): J44.1 - Chronic obstructive pulmonary disease with (acute) exacerbation Status: Acute - Plan 67 year old female with history of schizophrenia admitted to psych under [employer] for suicidal ideations. Hospitalist service consulted for evaluation of wheezing. 1. COPD exacerbation, mild - Pt with long history of tobacco abuse and with increased cough, dyspnea, and sputum production recently - Check CXR - Will treat with five day course of prednisone 20 mg and a Z-pack - DuoNeb Q6H while awake - Albuterol inhaler Q2H PRN - Mucinex BID - Supplemental O2 PRN - Continue Singulair - Patient would benefit from a long-acting steroid inhaler on discharge but I am not sure if she would be able to obtain it given her lack of insurance/ finances 2. Schizophrenia, suicidal ideations - Per psych DVT prophylaxis: ambulatory
--- NOTE | 2018-03-02 15:18 | XR ---
EXAM DATE: 03/02/2018 3:06 PM EDT AGE/SEX: 67 years / Female INDICATIONS: . Cough and congestion. CLINICAL DATA: This is the patient's initial encounter. Patient reports that signs and symptoms have been present for 4 - 6 days and indicates a pain score of 0/10. MEDICAL/SURGICAL HISTORY: Congestive heart failure. irregular heart rhythm. None. COMPARISON: [facility] [place], CHEST 1V SINGLE AP, 02/21/2018. . FINDINGS: PA and lateral views of the chest demonstrate a normal-sized cardiac silhouette. There is no effusion , consolidation, or pneumothorax. The bones and soft tissues demonstrate no acute abnormality. CONCLUSION: No acute cardiopulmonary abnormality is identified. Electronically signed by: Elan Kirkland MD 03/02/2018 3:17 PM EDT
[2018-03-02] MEDS: Azithromycin 250 MG Tablet PO SCH (15:45)
[2018-03-02] MEDS: predniSONE 20 MG Tablet PO SCH (15:45)
[2018-03-02] MEDS: Montelukast 10 MG Tablet PO SCH (20:38)
[2018-03-02] MEDS: guaiFENesin 600 MG ER Tablet PO SCH (20:38)
[2018-03-03] MEDS: Azithromycin 250 MG Tablet PO SCH (09:54)
[2018-03-03] MEDS: predniSONE 20 MG Tablet PO SCH (09:54)
[2018-03-03] MEDS: risperiDONE 0.5 MG ODT PO SCH ×2 (09:54→21:33)
[2018-03-03] MEDS: guaiFENesin 600 MG ER Tablet PO SCH ×2 (09:54→21:33)
[2018-03-03] MEDS: Budesonide-Formoterol 160/4.5 MCG 6 GM Inhaler INH SCH ×2 (09:54→21:37)
[2018-03-03] MEDS: Acetaminophen 325 MG Tablet PO PRN ×2 (09:55→14:26)
[2018-03-03] MEDS: Docusate Sodium 100 MG Capsule PO SCH ×2 (09:58→21:25)
--- NOTE | 2018-03-03 14:29 | P.PN ---
Subjective Interval history: Follow-up visit COPD exacerbation. Patient seen and examined today. Reports breathing a lot better. States that she just had a nebulizer treatment and is a little bit shaky. States that shakiness just started today. Discussed with patient effects of albuterol. If it continues we will adjust medications. States that if she has high blood pressure to give her Norvasc. Otherwise, Denies pain and discomfort. Denies SOB/ dyspnea. Denies chest pain, palpitations, headaches, dizziness. Denies fevers, chills, n/v/d. Denies dysuria. Physical Exam Vital signs: Vital Signs 03/02/18 17:23 03/03/18 05:48 03/03/18 10:14 Temperature 98.6 F 97.9 F Pulse Rate 70 64 73 Respiratory Rate 16 16 17 Blood Pressure 107/56 L 139/81 Pulse Oximetry 98 99 03/03/18 13:42 Temperature Pulse Rate 76 Respiratory Rate 16 Blood Pressure Pulse Oximetry Narrative: GENERAL: This is a well-nourished, well-developed patient, in no apparent distress. SKIN: Warm and dry. HEENT: Normocephalic. Pupils equal round and reactive. Nose without bleeding. Airway patent. NECK: Trachea midline. Supple. CARDIOVASCULAR: Regular rate and rhythm without murmurs, gallops, or rubs. RESPIRATORY: Coarse BS. No wheezes, rales, or rhonchi. GASTROINTESTINAL: Abdomen soft, non-tender, nondistended. Bowel Sounds normoactive x4. MUSCULOSKELETAL: Extremities without clubbing, cyanosis, or edema. Varicosities present bilaterally. NEUROLOGICAL: Awake and alert. Oriented to place, person. No focal neuro deficit. Moves all extremities. Normal speech. Results - Labs CBC & Chem 7: 02/28/18 12:47 03/01/18 08:49 - Imaging Impressions Chest X-Ray 03/02/18 00:00 CONCLUSION: No acute cardiopulmonary abnormality is identified. Assessment and Plan - Assessment (1) COPD exacerbation Code(s): J44.1 - Chronic obstructive pulmonary disease with (acute) exacerbation Status: Acute - Plan 67 year old female with history of schizophrenia and tobacco abuse admitted under [employer] for suicidal ideations. Hospitalist service consulted for wheezing and shortness of breath. COPD exacerbation, mild -Pt with long history of tobacco abuse and with increased cough, dyspnea, and sputum production recently -CXR no acute cardiopulmonary disease -Will treat with five day course of prednisone 20 mg and a Z-pack -DuoNeb Q6H while awake, Albuterol inhaler Q2H PRN -Mucinex BID -Supplemental O2 PRN -Continue Singulair -Start Symbicort twice daily. -Monitor respiratory status. Tobacco abuse -Counseled. Nicotine patch. Schizophrenia, suicidal ideations -Management per psych BP trend does not indicate any need for blood pressure medication for now. This has been discussed with patient. Verbalized understanding DVT prophylaxis ambulatory Code Status: Full code Discussed Condition With: Patient, nursing Discharge Planning: DC disposition by primary team
--- NOTE | 2018-03-03 15:58 | P.PNPSY ---
Subjective Chief Complaint: Manipulative threats of harm to self Remarks: Patient was seen and case discussed with nursing. It continues to be concerned for malingering. Patient is evasive during the interview. She admits to no longer having suicidal thoughts. But then she says she is sure she is not getting out of the hospital because of the breathing treatment and she has no place to live. She gives contradicting answers concerning hallucinations Mental Status Examination Appearance: Appropriate Consciousness: Alert Orientation: x4 Motor Activity: Normal gait Speech: Unremarkable Language: Adequate Fund of Knowledge: Inadequate Attention and Concentration: Adequate Memory: Unremarkable Mood: Irritable, Other (Mildly dysphoric) Affect: Blunt Thought Process & Associations: Intact Thought Content: Hallucinations, Delusional Hallucination Type: Auditory, Visual Delusion Type: Other (Restorationist) Suicidal Ideation: No (Manipulative) Suicidal Plan: No Suicidal Intention: No (No reported urge to hurt self on inpatient unit) Homicidal Ideation: No Homicidal Plan: No Homicidal Intention: No Insight: Poor Judgment: Poor Assessment and Plan - Assessment (1) Schizophrenia Code(s): F20.9 - Schizophrenia, unspecified Status: Chronic (2) Malingering Code(s): Z76.5 - Malingerer [conscious simulation] Status: Acute - Plan Plan: Continue current treatment plan Justification for Continued Inpatient Stay: Patient would decompensate in a less restrictive setting Request Healthcare Surrogate/Guardian Advocate?: No (1) Schizophrenia Qualifiers: Schizophrenia type: paranoid schizophrenia Qualified Code(s): F20.0 - Paranoid schizophrenia
[2018-03-03] MEDS: Montelukast 10 MG Tablet PO SCH (21:26)
[2018-03-04] MEDS: Docusate Sodium 100 MG Capsule PO SCH ×2 (08:02→20:55)
[2018-03-04] MEDS: Azithromycin 250 MG Tablet PO SCH (09:02)
[2018-03-04] MEDS: risperiDONE 0.5 MG ODT PO SCH ×2 (09:02→20:55)
[2018-03-04] MEDS: guaiFENesin 600 MG ER Tablet PO SCH ×2 (09:02→20:55)
[2018-03-04] MEDS: predniSONE 20 MG Tablet PO SCH (09:02)
[2018-03-04] MEDS: Budesonide-Formoterol 160/4.5 MCG 6 GM Inhaler INH SCH ×2 (09:02→21:27)
[2018-03-04] MEDS: Acetaminophen 325 MG Tablet PO PRN ×2 (09:03→20:56)
--- NOTE | 2018-03-04 15:10 | P.PNPSY ---
Subjective Chief Complaint: Manipulative threats of harm to self Remarks: Patient seen and examined with nurse. Chart reviewed. Case discussed with nursing staff who reports medication compliance and ongoing suspicion for malingering. Nurse notes that patient seems to respond to questions in a formulaic fashion, as though she has memorized canned responses to provide to staff. On my exam, patient is somewhat entitled and faultfinding. She complains about the quantity of food she is receiving. She denies any suicidal or homicidal ideation, intent or plan on direct questioning. She denies any audiovisual hallucinations. I can elicit no delusional material. No depressive or hypomanic/manic symptoms. She denies side effects from medications. I have a lengthy discussion with her regarding options for long- acting injectable antipsychotic medications, but she ultimately refuses to allow us to provide her with such an agent. She has no acute physical complaints and in particular denies any shortness of breath or other symptoms of respiratory distress. When I try to enter into a discussion of discharge planning with the patient, she refuses to discuss this matter saying that she has nowhere to go. She concludes the interview by threatening suicide after discharge if we release her, although this threat does have a fairly formulaic quality and is said in an off-hand fashion. Vital Signs Temp Pulse Resp BP Pulse Ox 03/04/18 09:16 81 14 03/04/18 06:23 98.5 F 81 17 133/64 97 03/03/18 22:02 89 18 03/03/18 18:00 98.4 F 120 H 17 163/56 H 99 Labs reviewed. No new labs. Review of Systems All other systems reviewed negative except as stated in HPI Mental Status Examination Appearance: Appropriate Consciousness: Alert Orientation: x4 Motor Activity: Other (No motor abnormalities noted) Speech: Unremarkable Language: Adequate Fund of Knowledge: Inadequate Attention and Concentration: Adequate Memory: Unremarkable Mood: Appropriate, Irritable Affect: Blunt Thought Process & Associations: Intact Thought Content: Appropriate Hallucination Type: None Delusion Type: None Suicidal Ideation: Yes (Manipulatively threatens suicide only if discharged) Suicidal Plan: No Suicidal Intention: No Homicidal Ideation: No Homicidal Plan: No Homicidal Intention: No Insight: Poor Judgment: Poor Assessment and Plan - Assessment (1) Schizophrenia Code(s): F20.9 - Schizophrenia, unspecified Status: Chronic (2) Malingering Code(s): Z76.5 - Malingerer [conscious simulation] Status: Acute - Plan Plan: Malingering for usp remains suspected primary diagnosis. I have put out a call to the counselor to see what can be offered to patient regarding usp, although I fear her options may be quite limited. I will continue Risperdal 0.5mg BID as ordered. Patient is refusing long-acting injectable. Continue to monitor on the inpatient psychiatric unit overnight. Hospitalist input noted and appreciated. Continue other medications and care as ordered. Justification for Continued Inpatient Stay: Monitoring for impairments in safety, none noted Discharge Planning: Possible discharge tomorrow, Sunday Request Healthcare Surrogate/Guardian Advocate?: No (1) Schizophrenia Qualifiers: Schizophrenia type: paranoid schizophrenia Qualified Code(s): F20.0 - Paranoid schizophrenia
--- NOTE | 2018-03-04 15:23 | P.PN ---
Subjective Interval history: Follow up on patient with [facility]. Patient seen and examined. Patient states her breathing has improved. She admits that she turned away the last respiratory tach because she made her uncomfortable. She states she is willing to try nebulizer treatment with a different respiratory tach. Presently, she denies any shortness of breath. She denies any chest pain. She denies any nausea, vomiting or abdominal pain. Physical Exam Vital signs: Vital Signs 03/03/18 18:00 03/03/18 22:02 03/04/18 06:23 Temperature 98.4 F 98.5 F Pulse Rate 120 H 89 81 Respiratory Rate 17 18 17 Blood Pressure 163/56 H 133/64 Pulse Oximetry 99 97 03/04/18 09:16 Temperature Pulse Rate 81 Respiratory Rate 14 Blood Pressure Pulse Oximetry Narrative: GENERAL: This is a well-nourished, well-developed female patient, in no apparent distress. Awake and alert. Appears comfortable. SKIN: Warm and dry. No generalized rash. HEENT: Normocephalic. Pupils equal round and reactive. Bilateral sclera anicteric. Nose without bleeding. Airway patent. MMM. NECK: Trachea midline. CARDIOVASCULAR: Regular rate and rhythm without murmurs, gallops, or rubs. RESPIRATORY: No accessory muscle use. Coarse BS in mid and lower lung rick. No wheezes, rales, or rhonchi. GASTROINTESTINAL: Abdomen soft, non-tender, nondistended. Bowel Sounds normoactive x4. MUSCULOSKELETAL: Extremities without clubbing, cyanosis, or edema. Varicosities present bilaterally. NEUROLOGICAL: Awake and alert. Oriented to place, person. No focal neuro deficit. Moves all extremities spontaneously. Normal speech. PSYCHIATRIC: Calm and cooperative. Results - Labs CBC & Chem 7: 02/28/18 12:47 03/01/18 08:49 - Imaging ITS Impressions Chest X-Ray 03/02/18 00:00 CONCLUSION: No acute cardiopulmonary abnormality is identified. Assessment and Plan - Assessment (1) COPD exacerbation Code(s): J44.1 - Chronic obstructive pulmonary disease with (acute) exacerbation Status: Acute - Plan 67 year old female with history of schizophrenia and tobacco abuse admitted under [employer] for suicidal ideations. Hospitalist service consulted for wheezing and shortness of breath. COPD exacerbation, mild Pt with long history of tobacco abuse and with increased cough, dyspnea, and sputum production recently CXR no acute cardiopulmonary disease -Continue on five day course of prednisone 20 mg and a Z-pack -DuoNeb Q6H while awake, Albuterol inhaler Q2H PRN -Mucinex BID -Supplemental O2 PRN -Continue Singulair -Continue Symbicort twice daily. -Continue to monitor respiratory status. TOMMY, mild, resolved Cr 1.01, repeat Cr 0.81 -avoid nephrotoxic agents -Monitor kidney function as indicated Tobacco abuse -Counseled. Nicotine patch. Schizophrenia, suicidal ideations -Management per psych Code Status: FULL Discussed Condition With: patient, nursing staff
[2018-03-04] MEDS: Montelukast 10 MG Tablet PO SCH (20:55)
[2018-03-05] MEDS: Docusate Sodium 100 MG Capsule PO SCH (08:43)
[2018-03-05] MEDS: Budesonide-Formoterol 160/4.5 MCG 6 GM Inhaler INH SCH (08:43)
[2018-03-05] MEDS: risperiDONE 0.5 MG ODT PO SCH (08:43)
[2018-03-05] MEDS: Azithromycin 250 MG Tablet PO SCH (08:43)
[2018-03-05] MEDS: guaiFENesin 600 MG ER Tablet PO SCH (08:43)
[2018-03-05] MEDS: predniSONE 20 MG Tablet PO SCH (08:44)
[2018-03-05] MEDS: Acetaminophen 325 MG Tablet PO PRN (08:57)
--- NOTE | 2018-03-05 09:30 | P.TTN ---
- Patient Problems Problems: 1. Discharge planning 2. Medication compliance 3. Knowledge deficit 4. Lack of coping skills - Progress Toward Goals Provider Present: Dr. Genna Willson Provider Input: patient is very focused on medical issues overall stable and compliant. suggest for follow up sober living or homeless sheltes in [place]. has some new medications since this admission she could discharge today Psychiatric Counselors Present: Birdie Bush LCSW (will provide sober living and [facility] to patient, options for homeless correction in [place] - SMA follow up locally if she remains in the area) Group Spec/RT/OT/HERCULES Present: DELISA Harris (rarely comes to groups, passive ) - Documentation Teaching Recipient: Patient
--- NOTE | 2018-03-05 12:06 | P.PN ---
Subjective Interval history: Follow up on patient with [facility]. Patient seen and examined. Patient is extremely upset that she is being discharged today. She informs me that she has no place to go. Attempt multiple times in the conversation to redirect patient to answering acute medical questions regarding her breathing, shortness of breath, chest pain, etc but patient tells me she cannot think straight to answer my questions appropriately because she is so upset about being discharged. Discussed with nursing staff, no acute events noted overnight. Physical Exam Vital signs: Vital Signs 03/04/18 17:00 03/04/18 19:45 03/05/18 05:44 Temperature 98.1 F 97.5 F L Pulse Rate 91 H 83 61 Respiratory Rate 18 18 16 Blood Pressure 123/65 154/69 H Pulse Oximetry 97 96 03/05/18 09:41 Temperature Pulse Rate 75 Respiratory Rate 18 Blood Pressure Pulse Oximetry Intake & Output 03/04/18 03/05/18 03/05/18 18:59 06:59 18:59 Intake Total 360 / 360 Balance 360 / 360 Intake: Oral 360 / 360 Narrative: GENERAL: This is a well-nourished, well-developed female patient. Awake and alert. Sitting on side of bed. Appears comfortable. Not in any acute distress. SKIN: Warm and dry. No generalized rash. HEENT: Normocephalic. Pupils equal round and reactive. Bilateral sclera anicteric. Nose without bleeding. Airway patent. MMM. NECK: Trachea midline. CARDIOVASCULAR: Regular rate and rhythm without murmurs, gallops, or rubs. RESPIRATORY: No accessory muscle use. Coarse BS in mid and lower lung rick. No wheezing. GASTROINTESTINAL: Abdomen soft, non-tender, nondistended. Bowel Sounds normoactive x4. MUSCULOSKELETAL: Extremities without clubbing, cyanosis, or edema. Varicosities present bilaterally. NEUROLOGICAL: Awake and alert. No focal neuro deficit. Moves all extremities spontaneously. Normal speech. PSYCHIATRIC: Upset, angry in regards to discharge. Results - Labs CBC & Chem 7: 02/28/18 12:47 03/01/18 08:49 Assessment and Plan - Assessment (1) COPD exacerbation Code(s): J44.1 - Chronic obstructive pulmonary disease with (acute) exacerbation Status: Acute - Plan 67 year old female with history of schizophrenia and tobacco abuse admitted under [employer] for suicidal ideations. Hospitalist service consulted for wheezing and shortness of breath. COPD exacerbation, mild Pt with long history of tobacco abuse and with increased cough, dyspnea, and sputum production recently CXR no acute cardiopulmonary disease -Continue on five day course of prednisone 20 mg and a Z-pack -DuoNeb Q6H while awake, Albuterol inhaler Q2H PRN -patient has been refusing DuoNeb treatments intermittently -Mucinex BID -Supplemental O2 PRN -Continue Singulair -Continue Symbicort twice daily. -Continue to monitor respiratory status. TOMMY, mild, resolved Cr 1.01, repeat Cr 0.81 -avoid nephrotoxic agents -Monitor kidney function as indicated Tobacco abuse -Patient counseled again in regards to importance of smoking cessation. Continue nicotine patch. Schizophrenia, suicidal ideations -Management per psych Patient appears stable from hospitalist standpoint. [facility] will sign off. Please reconsult if needed. Discussed Condition With: patient, nursing staff
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
== END 2018-03-05 13:15 ==
LOC: NEPJ 10:49 → NEDA 15:25 → H270 17:09 → H260 03-01 12:41
PROVIDERS: ADMIT Psychiatry & Neurology Psychiatry; ATTEND Psychiatry & Neurology Psychiatry

== ENCOUNTER 2018-04-03 14:21 | Inpatient (IN) ==
[2018-04-03 16:28] LABS: Baso # (Auto) 0.1 th/mm3 (0.0-0.2); Baso % (Auto) 0.7 % (0.0-2.0); Eos # (Auto) 0.1 th/mm3 (0.0-0.4); Eos % (Auto) 1.2 % (0.0-4.0); Hematocrit 40.9 % (35.0-46.0); Hemoglobin 13.4 gm/dL (11.6-15.3); Lymph # (Auto) 2.4 th/mm3 (1.0-4.8); Lymph % (Auto) 30.2 % (9.0-44.0); Mean Corpuscular HGB Conc 32.7 % (32.0-36.0); Mean Corpuscular Hemoglobin 30.1 pg (27.0-34.0); Mean Corpuscular Volume 92.1 fL (80.0-100.0); Mean Platelet Volume 7.5 fL (7.0-11.0); Mono # (Auto) 0.5 th/mm3 (0.0-0.9); Mono % (Auto) 6.4 % (0.0-8.0); Neut # (Auto) 4.8 th/mm3 (1.8-7.7); Neut % (Auto) 61.5 % (16.0-70.0); Platelet Count 272 th/mm3 (150-450); Red Blood Count 4.44 mil/mm3 (4.00-5.30); Red Cell Distribution Width 14.5 % (11.6-17.2); White Blood Count 7.9 th/mm3 (4.0-11.0)
--- NOTE | 2018-04-03 16:40 | ED ---
HPI General Chief Complaint: Psychiatric Symptoms Stated Complaint: weakness Time Seen by Provider: 04/03/18 16:11 Source: patient Mode of arrival: ambulatory Limitations: no limitations History of Present Illness HPI Narrative: 67-year-old female presents to the emergency department voluntarily for psychiatric evaluation. She reports having suicidal thoughts and is planning to walk out in traffic. She reports feeling depressed. She reports leaving against doctor's advice from [facility] because she needed to come and check her mail to check for her Social Security card. She said she should have enough for left that hospital because she was getting her Seroquel 3 times a day, eating 3 times a day, and getting smoke breaks. She is requesting transfer back to [facility]. She denies homicidal ideations. Denies auditory visual hallucinations. Reports history of suicidal attempts by walking out of traffic. Says her symptoms will be better if she could take her Seroquel but she does not have money to fill her prescription. Denies alcohol or illicit drug use. Reports tobacco use. Has been for a long time. No known aggravating or relieving factors. Symptoms are moderate to severe in severity. Onset unknown. Duration chronic. No treatments tried. History of schizophrenia, schizoaffective disorder, bipolar disorder, asthma. Allergies to Benadryl, Haldol, penicillin. No primary care provider. Does not have a psychiatrist. Has no other medical complaints. No other modifying factors or associated signs and symptoms. Related Data Previous Rx's Medication Instructions Recorded amlodipine [Norvasc] 5 mg PO DAILY #30 tab 04/05/18 quetiapine 100 mg PO HS #30 tab 04/05/18 Allergies Allergy/AdvReac Type Severity Reaction Status Date / Time haloperidol Allergy Severe CHEST PAIN Verified 02/28/18 11:37 penicillin G Allergy Severe SWELLING Verified 02/28/18 11:37 Review of Systems ROS: all other systems reviewed are negative [facility] Medical History Medical History Benign tumor of breast (Chronic) Irregular heart beat (Chronic) Bipolar 1 disorder (Chronic) Schizophrenia (Chronic) Social History Social History Substance History: No History of Abuse Second Hand Smoke Exposure: No Smoking Status: Former smoker Tobacco Type: Cigarettes How Often Do You Have a Drink Containing Alcohol: Monthly or less Recent Travel in [facility] within the Last 8 Weeks: No Recent Out of Country Travel within the Last 8 Weeks: No Immunization History Tetanus Immunization: <5 Years Hx Influenza Vaccine This Season: No Exam Narrative Exam Narrative: GENERAL: Well-nourished, well-developed female patient , in no acute distress SKIN: Warm and dry. HEAD: Atraumatic. Normocephalic. EYES: Pupils equal and round. ENT: Mucosa pink and moist. NECK: Supple. Trachea midline. CARDIOVASCULAR: Regular rate and rhythm. No murmur appreciated. RESPIRATORY: No accessory muscle use. Clear to auscultation. Breath sounds equal bilaterally. GASTROINTESTINAL: Abdomen soft, non-tender, nondistended. Hepatic and splenic margins not palpable. Bowel sounds are active 4 quadrants. MUSCULOSKELETAL: No obvious deformities. No clubbing. No cyanosis. No edema. BACK: No CVA tenderness. NEUROLOGICAL: Awake and alert. Oriented 4. No obvious cranial nerve deficits. Motor grossly within normal limits. Normal speech. Moves all extremities. 5/5 strength to all extremities. PSYCHIATRIC: No delusional thought processes. No hallucinations. Course Initial Documented Vital Signs Temperature 98.4 F 04/03/18 16:04 Pulse Rate 79 04/03/18 16:04 Respiratory Rate 20 04/03/18 16:04 Blood Pressure 175/81 H 04/03/18 16:04 Pulse Oximetry 100 04/03/18 16:04 Last Documented Vital Signs Temperature 97.6 F 04/05/18 05:19 Pulse Rate 72 04/05/18 05:19 Respiratory Rate 18 04/05/18 05:19 Blood Pressure 111/65 04/05/18 05:19 Pulse Oximetry 96 04/05/18 05:19 Medical Decision Making [facility] Narrative Medical decision making narrative: Patient presents voluntarily. Physical examination and vital signs are essentially unremarkable. Patient has no medical complaints to report. Psych screen has been ordered. If the laboratory results are unremarkable, the patient will be medically cleared for psychiatric evaluation and disposition. Medical Screen Exam Complete: Yes Emergency Medical Condition: Yes Differential Diagnosis Differential Diagnosis: Schizophrenia, bipolar disorder, depression, malingering , medical clearance for psychiatric evaluation Lab Data Result diagrams: 04/03/18 16:05 04/03/18 16:05 Lab Results 04/03/18 04/03/18 04/03/18 Range/Units 16:05 16:05 16:05 WBC 7.9 (4.0-11.0) th/mm3 RBC 4.44 (4.00-5.30) mil/mm3 Hgb 13.4 (11.6-15.3) gm/dL Hct 40.9 (35.0-46.0) % MCV 92.1 (80.0-100.0) fL MCH 30.1 (27.0-34.0) pg MCHC 32.7 (32.0-36.0) % RDW 14.5 (11.6-17.2) % Plt Count 272 (150-450) th/mm3 MPV 7.5 (7.0-11.0) fL Neut % (Auto) 61.5 (16.0-70.0) % Lymph % (Auto) 30.2 (9.0-44.0) % [place] % (Auto) 6.4 (0.0-8.0) % Eos % (Auto) 1.2 (0.0-4.0) % Baso % (Auto) 0.7 (0.0-2.0) % Neut # (Auto) 4.8 (1.8-7.7) th/mm3 Lymph # (Auto) 2.4 (1.0-4.8) th/mm3 [place] # (Auto) 0.5 (0.0-0.9) th/mm3 Eos # (Auto) 0.1 (0.0-0.4) th/mm3 Baso # (Auto) 0.1 (0.0-0.2) th/mm3 WBC Differential . Differential Comment Auto diff final Sodium 143 (136-145) meq/L Potassium 4.2 (3.5-5.1) meq/L Chloride 109 H (98-107) meq/L Carbon Dioxide 24.9 (21.0-32.0) meq/L Anion Gap 9 (5-15) meq/L BUN 18 (7-18) mg/dL Creatinine 0.78 (0.50-1.00) mg/dL Estimated GFR 74 L (>89) mL/min Random Glucose 87 (74-106) mg/dL Calcium 8.6 (8.5-10.1) mg/dL Total Bilirubin 0.4 (0.2-1.0) mg/dL AST 23 (15-37) U/L ALT 20 (10-53) U/L Alkaline Phosphatase 94 (45-117) U/L Total Protein 7.6 (6.4-8.2) g/dL Albumin 4.1 (3.4-5.0) g/dL TSH 0.945 (0.358-3.740) uIU/mL Salicylates Less than 1.7 L (2.8-20.0) mg/dL Urine Opiates Screen (Neg) Acetaminophen Less than 2.0 L (10.0-30.0) mcg/mL Ur Barbiturates Screen (Neg) Ur Amphetamines Screen (Neg) U Benzodiazepines Scrn (Neg) Urine Cocaine Screen (Neg) U Cannabinoids Screen (Neg) Serum Alcohol Less than 3 (0-5) mg/dL 04/03/18 Range/Units 19:24 WBC (4.0-11.0) th/mm3 RBC (4.00-5.30) mil/mm3 Hgb (11.6-15.3) gm/dL Hct (35.0-46.0) % MCV (80.0-100.0) fL MCH (27.0-34.0) pg MCHC (32.0-36.0) % RDW (11.6-17.2) % Plt Count (150-450) th/mm3 MPV (7.0-11.0) fL Neut % (Auto) (16.0-70.0) % Lymph % (Auto) (9.0-44.0) % [place] % (Auto) (0.0-8.0) % Eos % (Auto) (0.0-4.0) % Baso % (Auto) (0.0-2.0) % Neut # (Auto) (1.8-7.7) th/mm3 Lymph # (Auto) (1.0-4.8) th/mm3 [place] # (Auto) (0.0-0.9) th/mm3 Eos # (Auto) (0.0-0.4) th/mm3 Baso # (Auto) (0.0-0.2) th/mm3 WBC Differential Differential Comment Sodium (136-145) meq/L Potassium (3.5-5.1) meq/L Chloride (98-107) meq/L Carbon Dioxide (21.0-32.0) meq/L Anion Gap (5-15) meq/L BUN (7-18) mg/dL Creatinine (0.50-1.00) mg/dL Estimated GFR (>89) mL/min Random Glucose (74-106) mg/dL Calcium (8.5-10.1) mg/dL Total Bilirubin (0.2-1.0) mg/dL AST (15-37) U/L ALT (10-53) U/L Alkaline Phosphatase (45-117) U/L Total Protein (6.4-8.2) g/dL Albumin (3.4-5.0) g/dL TSH (0.358-3.740) uIU/mL Salicylates (2.8-20.0) mg/dL Urine Opiates Screen Neg (Neg) Acetaminophen (10.0-30.0) mcg/mL Ur Barbiturates Screen Neg (Neg) Ur Amphetamines Screen Neg (Neg) U Benzodiazepines Scrn Neg (Neg) Urine Cocaine Screen Neg (Neg) U Cannabinoids Screen Neg (Neg) Serum Alcohol (0-5) mg/dL Discharge Plan Discharge Disposition Patient Disposition: 30 Still Patient Discharge Condition Condition: Fair Discharge Order Discharge Orders: Discharge Order (Routine); Ordered 04/05/18 Ordered By: Elan Navarro Discharge Details Anticipated Discharge Date: 04/05/18 Diagnosis: Encounter for psychiatric assessment Physicians Team ED Provider: Alcides Elizondo ED Midlevel Provider: Jaelyn Jaramillo Primary Care Provider: UNKNOWN, Attending Provider: Elan Navarro Other Providers: Justicer,[facility] ; Jessica Gipson Status ED Status: Left Department Discharge Information Discharge Date/Time: 04/03/18 22:07
[2018-04-03 16:50] LABS: Alanine Aminotransferase 20 U/L (10-53); Albumin 4.1 g/dL (3.4-5.0); Anion Gap 9 meq/L (5-15); Aspartate Aminotransferase 23 U/L (15-37); Blood Urea Nitrogen 18 mg/dL (7-18); Calcium 8.6 mg/dL (8.5-10.1); Carbon Dioxide 24.9 meq/L (21.0-32.0); Chloride 109 meq/L (98-107); Glomerular Filtration Rate 74 mL/min (>89); Glucose,Random 87 mg/dL (74-106); Potassium 4.2 meq/L (3.5-5.1); Sodium 143 meq/L (136-145)
[2018-04-03 17:00] LABS: Alkaline Phosphatase 94 U/L (45-117); Thyroid Stimulating Hormone 0.945 uIU/mL (0.358-3.740); Total Protein 7.6 g/dL (6.4-8.2)
[2018-04-03 20:08] LABS: Amphetamine Screen,Urine Neg (Neg); Barbiturate Screen,Urine Neg (Neg); Cannabinoid Screen,Urine Neg (Neg); Cocaine Screen,Urine Neg (Neg)
[2018-04-03 20:15] LABS: Opiate Screen,Urine Neg (Neg)
[2018-04-03] MEDS ORDERED: Aluminum/Magnesium/Simethacone Susp 30 ML UDC PO PRN (22:54)
[2018-04-03] MEDS ORDERED: LORazepam 0.5 MG Tablet PO PRN (22:54)
[2018-04-03] MEDS ORDERED: Acetaminophen 325 MG Tablet PO PRN (22:54)
[2018-04-04 06:00] VITALS: O2SAT 96
--- NOTE | 2018-04-04 07:49 | P.CON ---
History of Present Illness Service: Hospitalist Consult date: 04/04/18 Reason for Consult: Hypertension Primary Care Provider: UNKNOWN Family Provider: No Primary Care Physician Chief Complaint: Depression History of Present Illness: Ms. Brewster is a pleasant 67-year-old female with a history of hypertension, depression was admitted to the psychiatry unit due to depression, suicidal ideations. Patient used to be on hypertensive medications but does not take it currently. She denies any chest pain, shortness of breath, cough, fever or chills. She does report abdominal pain. She is having multiple episodes of diarrhea type bowel movements. No blood in the stool. She denies any dysuria, hematuria. She reports some right knee pain and medial right knee swelling. Hospitalist service was consulted for hypertension and other medical management. Her blood pressure was in the 170s on admission. However today her blood pressure is in the upper 130s and 140 systolic. Past medical history: Schizophrenia, hypertension, suicidal attempts. Past surgical history: Appendectomy, ovary surgery, tubal ligation. Social history: Patient smokes less than a pack a day. She denies using alcohol or illicit drugs. Family history: Grandfather had TB. Review of Systems All other systems reviewed negative except as stated in HPI PMFSH - History History Provided By: Patient - Medical History Medical History: Medical History (Last Reviewed 04/03/18 @ 16:38 by ALYCIA Dhillon) Benign tumor of breast (Chronic) Irregular heart beat (Chronic) Bipolar 1 disorder (Chronic) Schizophrenia (Chronic) - Surgical History Surgical History: Surgical History (Last Reviewed 04/03/18 @ 16:06 by Brianna Avila) History of oophorectomy, unilateral (Resolved) History of appendectomy (Resolved) - Family History Family History: Family History (Last Reviewed 02/28/18 @ 12:20 by ALYCIA Reyes) Mother Emphysema of lung Father Asthma Other Parents - Tobacco History Second Hand Smoke Exposure: No Tobacco Use In Past 30 Days: Yes Smoking Status: Former smoker Tobacco Type: Cigarettes - Alcohol History How Often Do You Have a Drink Containing Alcohol: Monthly or less - Substance Use History Substance History: No History of Abuse - Travel History Recent Travel in the [place] Within the Last 8 Weeks: No Recent Travel Out of the Country Within the Last 8 Weeks: No - Immunization History Tetanus Immunization: <5 Years Hx Influenza Vaccine This Season: No Medications and Allergies Active Medications: Active Medications Acetaminophen (Tylenol) 650 mg PO Q4H PRN PRN Reason: Pain 1-5 or Temp >101F Al Hydrox/Mg Hydrox/Simethicone (Mag-Al Plus Susp Liq) 30 ml PO Q6H PRN PRN Reason: DYSPEPSIA Al Hydroxide/Mg Hydroxide (Milk Of Magnesia Liq) 30 ml PO Q12H PRN PRN Reason: Mild Constipation Diphenhydramine HCl (Benadryl) 50 mg PO HS PRN PRN Reason: INSOMNIA Diphenhydramine HCl (Benadryl Inj) 50 mg IM HS PRN PRN Reason: INSOMNIA Lorazepam (Ativan) 0.5 mg PO Q12H PRN PRN Reason: MODERATE TO SEVERE ANXIETY Lorazepam (Ativan Inj) 0.5 mg IM Q12H PRN PRN Reason: MODERATE TO SEVERE ANXIETY Nicotine (Habitrol 21 Mg Patch.24 Hr) 1 patch T-DERMAL HS [facility] Allergies Allergy/AdvReac Type Severity Reaction Status Date / Time haloperidol Allergy Severe CHEST PAIN Verified 02/28/18 11:37 penicillin G Allergy Severe SWELLING Verified 02/28/18 11:37 Home Medications Medication Instructions Recorded Confirmed Type No Known Home Medications 04/03/18 04/03/18 History Physical Exam Vital signs: Vital Signs 04/03/18 16:04 04/03/18 19:43 04/03/18 23:51 Temperature 98.4 F 98 F Pulse Rate 79 66 79 Respiratory Rate 20 18 16 Blood Pressure 175/81 H 170/78 H 140/65 Pulse Oximetry 100 100 94 L 04/04/18 05:59 Temperature 98 F Pulse Rate 61 Respiratory Rate 16 Blood Pressure 137/65 Pulse Oximetry 96 Intake & Output 04/03/18 04/04/18 04/04/18 18:59 06:59 18:59 Weight 73.3 kg Other: Weight On Admission 68.2 kg Narrative: GENERAL: This is a well-nourished, well-developed patient, in no apparent distress. SKIN: No rashes, ecchymoses or lesions. Warm and dry. HEAD: Atraumatic. Normocephalic. No temporal or scalp tenderness. EYES: Pupils equal round and reactive. No injection or drainage. ENT: Nose without bleeding, purulent drainage or septal hematoma. Airway patent. NECK: Trachea midline. No lymphadenopathy. Supple, nontender, no meningeal signs. CARDIOVASCULAR: Regular rate and rhythm without murmurs, gallops, or rubs. No JVD. RESPIRATORY: Clear to auscultation. Breath sounds equal bilaterally. No wheezes , rales, or rhonchi. GASTROINTESTINAL: Abdomen soft, nondistended. No guarding. Abdomen is diffusely tender to palpation especially left side of the abdomen. MUSCULOSKELETAL: Extremities without clubbing, cyanosis, or edema. There is some swelling on the medial side of the right knee. No erythema present. NEUROLOGICAL: Awake and alert. Cranial nerves II through XII intact. No focal neurological deficits. Normal speech. Assessment and Plan - Assessment (1) Hypertension Code(s): I10 - Essential (primary) hypertension Status: Acute - Plan Ms. Brewster is a pleasant 67-year-old female with a history of hypertension, depression who was admitted to the psychiatry unit due to depression and suicidal ideations. Hospital service was consulted for hypertension. Depression Suicidal ideations Hx of schizophrenia -Management per psychiatry team. -Patient apparently was on Seroquel before Hypertension -On admission patient's systolic blood pressure was in the 170s. Currently 130s-140. -We can start her on low dose of amlodipine 5 mg daily. Abdominal pain -Somewhat nonspecific. If patient continues to have diarrhea type bowel movements will consider C. difficile testing. Right knee swelling -Medial right knee swelling appears to be chronic. -Acetaminophen for pain control. Tobacco abuse -Provided counselling. If needed, we can provide nicotine patch 7mg. Full code. Ambulation. Thank you for the consult. We will continue to follow this patient with you.
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
[2018-04-04] MEDS: amLODIPine 5 MG Tablet PO SCH (14:12)
[2018-04-04] MEDS ORDERED: QUEtiapine 100 MG Tablet PO SCH (21:00)
[2018-04-05 05:20] VITALS: BP 111/65; PULSE 72; RESP 18; TEMP 97.6
--- NOTE | 2018-04-05 07:39 | P.PN ---
Subjective Interval history: Patient doing well, patient reports that she she declines her BP meds and that she does not care about taking her medications and wants to leave home. Denies CP and SOB. Physical Exam Vital signs: Vital Signs 04/04/18 23:05 04/05/18 05:19 Temperature 97.6 F Pulse Rate 72 Respiratory Rate 16 18 Blood Pressure 111/65 Pulse Oximetry 96 Intake & Output 04/04/18 04/05/18 04/05/18 18:59 06:59 18:59 Other: Date of Last Bowel Movement 04/04/18 04/04/18 Narrative: GENERAL: well nourished female, in NAD, declines physical exam PSYCH: anxious, agitated Results - Labs CBC & Chem 7: 04/03/18 16:05 04/03/18 16:05 Assessment and Plan - Assessment (1) Hypertension Code(s): I10 - Essential (primary) hypertension Status: Chronic - Plan This is a 67 y/o CF PMHx of Hypertension and Depression who was admitted to the psychiatry unit due to suicidal ideations, we have been consulted for IP mgmt, HD#3 1. Depression with Suicidal Ideations, Hx of schizophrenia Management per psychiatry team Cont. Seroquel QD 2. Hypertension Stable Cont. Amlodipine 5mg QD 3. Tobacco Abuse Provided counselling, Nicotine patch 7mg PRN. 4. DVT PPX: Ambulation. 5. Dispo: Cont. to F/U BP, will sign off, call us if elevated Code Status: full Discussed Condition With: patient, RN
[2018-04-05] MEDS: amLODIPine 5 MG Tablet PO SCH (10:21)
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
== END 2018-04-05 14:20 | disposition home or self-care (01) ==
LOC: NEPD 14:21 → NEDA 21:51 → H260 22:11
PROVIDERS: ADMIT Psychiatry & Neurology Psychiatry; ATTEND Psychiatry & Neurology Psychiatry